=== PATIENT | female | born 1990 | race Caucasian/White ===

== ENCOUNTER → 2018-06-11 16:32 | Outpatient (CLI) | payer OTHER, SELFPAY ==
[2018-06-15 10:39] LABS: HPV Reflexed? NOT INDICATED
== END ==
LOC: LABSPEC 16:36
PROVIDERS: Visit Provider Family Medicine
DX: Z12.72 Encounter for screening for malignant neoplasm of vagina (principal)
CPT/HCPCS: 88175; G0145

== ENCOUNTER 2025-01-23 21:46 | Emergency (ER) | payer OTHER, MEDICAID, SELFPAY ==
[2025-01-23 21:47] VITALS: BP 148/104; PULSE 103; RESP 18; TEMP 36.4; O2SAT 100; BMI 31.6
--- OUTSIDE RECORDS SUMMARY | 2025-01-23 23:56 | XMS RPT_ITS | CCD ---
Author Organization [facility] [place] [facility] Care Team Providers Care 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 Name Role Phone Yoli Abreu Unavailable Unavailable Al Audi GARNETT, Amanda Iniguez Primary Care Provider FLORINA ONEAL Attending Unavailable AL SAIF, AMANDA INIGUEZ Referring Unavailable AL SAIF, AMANDA INIGUEZ Primary Care Unavailable AL SAIF, AMANDA INIGUEZ Attending Unavailable AL SAIF, ALEJANDRINAA Primary Care Unavailable AL SAIF, ALAA NELSONDI Referring Unavailable AL SAIF, ALAA Primary Care Unavailable AL SAWAYNE, AMANDA INIGUEZ Attending Unavailable AL SAIF, ALAAmina INIGUEZ Primary Care Unavailable AL SAIF, ALAA MAHDI Referring Unavailable AL SAIF, ALAA MAHDI Primary Care Unavailable Allergies Allergy Classification Reported Allergen(s) Allergy Type Date of Onset Reaction(s) Facility (11 sources) Penicillin V; Translations: [PENICILLIN V] Drug Allergy 10-15-2024 Unknown [facility] Medications Current Medications Medication Drug Class(es) Dates Sig (Normalized) Sig (Original) Ethinyl Estradiol / Norethindrone (10 sources) Estrogen Start: 12-03-2024 End: 11-04-2025 Norethindrone-Eth Estradiol (OVCON-35) 0.4-35 mg-mcg per tablet Take 1 tablet by mouth once daily. Take active pills only. Start a new pack every 3 weeks. 112 tablet 3 12/03/2024 11/04/2025 Active Start: 02-27-2023 End: 12-03-2024 take 1 tablet by mouth once daily Norethindrone-Eth Estradiol (OVCON-35) 0.4-35 mg-mcg per tablet Take 1 tablet by mouth once daily. 02/27/2023 12/03/2024 Discontinued Start: 02-27-2023 take 1 tablet by tanner th once daily Norethindrone-Eth Estradiol (OVCON-35) 0.4-35 mg-mcg per tablet Take 1 tablet by mouth once daily. 02/27/2023 Active fenofibrate 67 mg oral capsule (1 source) Peroxisome Proliferator Receptor alpha Agonist Start: 01-15-2025 End: 01-15-2026 take 1 capsule by mouth once daily at breakfast fenofibrate (LOFIBRA) 67 mg capsule Indications: Combined hyperlipidemia Take 1 capsule by mouth daily with breakfast. 90 capsule 3 01/15/2025 01/15/2026 Active Magnesium (8 sources) take 2 tablets by mouth once daily Magnesium 200 mg tab Take by mouth once daily. 400 mg Active methylsulfonylmethane (8 sources) methylsulfonylme derick (MSM ORAL) Take by mouth once daily. Active multivit,thx,calcium,ir on,mins (MULTIVITAMIN AND MINERAL ORAL) (8 sources) multivit,thx,orly cium,ir on,mins (MULTIVITAMIN AND MINERAL ORAL) Take by mouth once daily. Active nortriptyline 10 mg oral capsule (11 sources) Tricyclic Antidepressant Start: 10-15-2024 End: 12-03-2025 take 1 capsule by mouth once daily nortriptyline (PAMELOR) 10 mg capsule Indications: Migraine without aura and without status migrainosus, not intractable Take 1 capsule by mouth once daily. 90 capsule 3 12/03/2024 12/03/2025 Active ubrogepant 100 mg oral tablet (11 sources) Start: 02-27-2023 End: 12-04-2024 take 1 tablet by mouth once daily as needed ubrogepant (UBRELVY) 100 mg tablet Indications: Migraine without aura and without status migrainosus, not intractable Take 1 tablet by mouth once daily as needed. 30 tablet 12/04/2024 Active Problems Active Problems Problem Classification Problem Date Documented Date Episodic/Chronic Anxiety disorders (12 sources) Mixed anxiety and depressive disorder; Translations: [Other specified anxiety disorders] Onset: 10-15-2024 10-15-2024 Chronic Contraceptive and procreative management (2 sources) Oral contraception; Translations: [Encounter for surveillance of contraceptive pills] Onset: 12-03-2024 12-03-2024 Episodic Disorders of lipid metabolism (3 sources) Mixed hyperlipidemia; Translations: [Mixed hyperlipidemia] Onset: 01-15-2025 01-15-2025 Chronic Headache; including migraine (14 sources) Migraine without aura, not refractory ; Translations: [Migraine without aura, not intractable, without status migrainosus] Onset: 10-15-2024 10-15-2024 Chronic Nutritional deficiencies (2 sources) Vitamin D deficiency; Translations: [Vitamin D deficiency, unspecified] Onset: 10-15-2024 10-15-2024 Chronic Other nutritional; endocrine; and metabolic disorders (10 sources) Obese class I; Translations: [Obesity, Class I, BMI 30-34.9] Onset: 10-15-2024 10-15-2024 Chronic Unclassified (1 source) Cancer cervix screening status 10-15-2024 Unclassified (1 source) Obesity, Class I, BMI 30-34.9; Translations: [Obesity, Class I, BMI 30-34.9] Onset: 10-15-2024 Past or Other Problems Problem Classification Problem Date Documented Da te Episodic/Chronic Diabetes mellitus without complication (10 sources) Prediabetes; Translations: [Prediabetes] Onset: 10-15-2024 10-15-2024 Episodic Immunizations and screening for infectious disease (6 sources) Viral screening status; Translations: [Encounter for screening for other viral diseases] Onset: 10-15-2024 10-15-2024 Episodic Malaise and fatigue (2 sources) Fatigue; Translations: [Other fatigue] Onset: 10-15-2024 10-15-2024 Episodic Other screening for suspected conditions (not mental disorders or infectious disease) (8 sources) Patient encounter status; Translations: [Encounter for screening for lipoid disorders] Onset: 10-15-2024 10-15-2024 Episodic Screening and history of mental health and substance abuse codes (2 sources) Encounter for screening for depression; Translations: [Encounter for screening examination for other mental health and behavioral disorders] Onset: 10-15-2024 Episodic Results Test Name Value Interpretation Reference Range Facil ity CBC panel Auto (Bld)on 01-16 Erythrocyte distribution width (RBC) [Ratio] 13.9 % Normal 11.5-15.0 [facility] Comment on above: Order Comment: Speci men Type: BLOOD SPECIMENOrdering Facility: [facility] Address: [address] [place], [place] [address] Performed By: #### 5 9210-2 ####MCKINLEY ALFARON LABCLIA [id number] [place] [address] [facility] Hematocrit (Bld) [Volume fraction] 46.8 % High 36.0-46.0 [facility] Comment on above: Order Comment: Speci men Type: BLOOD SPECIMENOrdering Facility: [facility] Address: [address] [place] [address] Performed By: #### 5 8410-2 ####MCKINLEY ALFARON LABCLIA [id number] [place] [address] [facility] Hemoglobin (Bld) [Mass/Vol] 14.6 g/dL Normal 11.5-15.5 [facility] Comment on above: Order Comment: Speci men Type: BLOOD SPECIMENOrdering Facility: [facility] Address: [address] [place] [address] Performed By: #### 5 8410-2 ####MCKINLEY ALFARON LABCLIA [id number] [address] MCH (RBC) [Entitic mass] 27.9 pg Normal 26.0-34.0 [facility] Comment on above: Order Comment: Speci men Type: BLOOD SPECIMENOrdering Facility: [facility] Address: [address] [place] [address] Performed By: #### 5 8410-2 ####MCKINLEY ALFAROTiny LABCLIA [id number] [place] [address] [facility] MCHC (RBC) [Mass/Vol] 31.2 g/dL Normal 30.5-36.0 [facility] Comment on above: Order Comment: Speci men Type: BLOOD SPECIMENOrdering Facility: [facility] Address: [address] [place] [address] Performed By: #### 5 8410-2 ####MCKINLEY ALFARON LABCLIA [id number] [place] [address] [place] MCV (RBC) [Entitic vol] 89.3 fL Normal 80.0-100.0 [facility] Comment on above: Order Comment: Speci men Type: BLOOD SPECIMENOrdering Facility: [facility] Address: [address] [place] [address] Performed By: #### 5 8410-2 ####MCKINLEY ALFAROTiny LABCLIA [id number] [place] [address] [place] Platelet mean volume (Bld) [Entitic vol] 10.1 fL Normal 9.0-12.7 [facility] Comment on above: Order Comment: Speci men Type: BLOOD SPECIMENOrdering Facility: [facility] Address: [address] [place] [address] Performed By: #### 5 8410-2 ####BRIDoe BIJUCLIFTON LABIA [id number] [place] [address] [place] Platelets (Bld) [#/Vol] 285 10*3/uL Normal 150-400 [facility] Comment on above: Order Comment: Speci men Type: BLOOD SPECIMENOrdering Facility: [facility] Address: [address] [place] [address] Performed By: #### 5 8410-2 ####MCKINLEY ALFAROTiny LABCLIA [id number] [place] [address] [place] RBC (Bld) [#/Vol] 5.24 10*6/uL High 3.90-5.20 [facility] Comment on above: Order Comment: Speci men Type: BLOOD SPECIMENOrdering Facility: [facility] Address: [address] [place] [address] Performed By: #### 5 8410-2 ####MCKINLEY ALFAROTiny LABCLIA [id number] [place] [address] [place] WBC (Bld) [#/Vol] 8.73 10*3/uL Normal 3.70-11.00 [facility] Comment on above: Order Comment: Speci men Type: BLOOD SPECIMENOrdering Facility: [facility] Address: [address] [place] [address] Performed By: #### 5 8410-2 ####[facility] LABCLIA [id number] [address] Comprehensive metabolic 2000 panelon 01-16-2025 Albumin [Mass/Vol] 4.0 g/dL Normal 3.2-5.0 [facility] Comment on above: Order Comment: Speci men Type: BLOOD SPECIMENOrdering Facility: [facility] Address: [address] [place] [address] Performed By: #### 2 4323-8 ####[facility] LABORATORYCLIA [id number] [address]#### [address]-8 ####[facility] LABORATORYCLIA [id number] [address] LABCLIA [id number] [address] ALP [Catalytic activity/Vol] 74 U/L Normal 45-117 [facility] Comment on above: Order Comment: Speci men Type: BLOOD SPECIMENOrdering Facility: [facility] Address: [address] [place] [address] Performed By: #### 2 4323-8 ####[facility] LABORATORYCLIA [id number] [address]#### 28220-9 ####[facility] LABORATORYCLIA [id number] [address] [place] LABCLIA [id number] [address] ALT [Catalytic activity/Vol] 26 U/L Normal 13-61 [facility] Comment on above: Order Comment: Speci men Type: BLOOD SPECIMENOrdering Facility: [facility] Address: [address] [place] [address] Result Comment: Resu lts may be falsely depressed after the administration of Sulfasalazine and/or Sulfapyridine. Performed By: #### 2 4323-8 ####[facility] LABORATORYCLIA [id number] [address]#### 31163-2 ####[facility] LABORATORYCLIA [id number] [place] [address] [facility] [place] LABCLIA [id number] [place], [place] [address] [place] [address] [place] [facility] Anion gap [Moles/Vol] 7 mmol/L Normal 5-16 [facility] Comment on above: Order Comment: Speci men Type: BLOOD SPECIMENOrdering Facility: [facility] Address: [address] [place] [address] Performed By: #### 2 4323-8 ####[facility] LABORATORYCLIA [id number] [address]#### 06397-6 ####[facility] LABORATORYCLIA [id number] [address] [place] LABCLIA [id number] [address] AST [Catalytic activity/Vol] 21 U/L Normal 8-34 [facility] Comment on above: Order Comment: Speci men Type: BLOOD SPECIMENOrdering Facility: [facility] Address: [address] [place] [address] Result Comment: Resu lts may be falsely depressed after the administration of Sulfasalazine and/or Sulfapyridine. Performed By: #### 2 4323-8 ####[facility] LABORATORYCLIA [id number] [address] [place]#### [address]-5 ####[facility] LABORATORYCLIA [id number] [address] [place] LABCLIA [id number] [place] [id number] [place] Bilirubin [Mass/Vol] 0.3 mg/dL Normal 0.2-1.0 [facility] Comment on above: Order Comment: Speci men Type: BLOOD SPECIMENOrdering Facility: [facility] Address: [address] [address] Performed By: #### 2 4323-8 ####[facility] LABORATORYCLIA [id number] [place] [address] [place]#### 04440-9 ####[facility] LABORATORYCLIA [id number] [address] STATES OF [facility] [place] LABCLIA [id number] [place] [address] [place] Calcium [Mass/Vol] 9.3 mg/dL Normal 8.5-10.5 [facility] Comment on above: Order Comment: Speci men Type: BLOOD SPECIMENOrdering Facility: [facility] Address: [address] [place] [id number] Performed By: #### 2 4323-8 ####[facility] LABORATORYCLIA [id number] [place] [address] [place]#### 72682-4 ####[facility] LABORATORYCLIA [id number] [address] [place] LABCLIA [id number] [place] [address] [place] Chloride [Moles/Vol] 107 mmol/L Normal 98-107 [facility] Comment on above: Order Comment: Speci men Type: BLOOD SPECIMENOrdering Facility: [facility] Address: [address] [facility] [address] Performed By: #### 2 4323-8 ####[facility] LABORATORYCLIA [id number] [place] [address] [place]#### 22969-6 ####[facility] LABORATORYCLIA [id number] [address] [place] LABCLIA [id number] [address] [place] [facility] CO2 [Moles/Vol] 26 mmol/L Normal 21-32 [facility] Comment on above: Order Comment: Speci men Type: BLOOD SPECIMENOrdering Facility: [facility] Address: [address] [place] [address] Performed By: #### 2 4323-8 ####[facility] LABORATORYCLIA [id number] [address]#### 70344-2 ####[facility] LABORATORYCLIA [id number] [address] LABCLIA [id number] [address] STATES OF [facility] Creatinine [Mass/Vol] 0.53 mg/dL Normal 0.51-0.95 [facility] Comment on above: Order Comment: Speci men Type: BLOOD SPECIMENOrdering Facility: [facility] Address: [address] [place] [address] Result Comment: Faye ents receiving either N-Acetylcysteine (NAC) or Metamizole prior to venipuncture, may have falsely depressed results. Performed By: #### 2 4323-8 ####[facility] LABORATORYCLIA [id number] [address] [place]#### 89846-9 ####[facility] LABORATORYCLIA [id number] [address] LABCLIA [id number] [address] Creatinine and Glomerular filtration rate.predicted panel (S/P/Bld) 125 mL/min/1.73m??? Normal >=60 [facility] Comment on above: Order Comment: Speci men Type: BLOOD SPECIMENOrdering Facility: [facility] Address: [address] [place] [address] Result Comment: Della mated Glomerular Filtration Rate (eGFR) is calculated using the 2020 CKD-EPI creatinine equation. This equation utilizes serum creatinine, sex, and age as parameters. The creatinine assay has traceable calibration to isotope dilution-mass spectrometry. Refer to KDIGO guidelines for clinical interpretation. In patients with unstable renal function, e.g. those with acute kidney injury, the eGFR may not accurately reflect actual GFR. Performed By: #### 2 4323-8 ####[facility] LABORATORYCLIA [id number] [address]#### 07085-4 ####[facility] LABORATORYCLIA [id number] [address] LABCLIA [id number] [place] [address] [facility] Glucose [Mass/Vol] 93 mg/dL Normal 70-100 [facility] Comment on above: Order Comment: Speci men Type: BLOOD SPECIMENOrdering Facility: [facility] Address: [address] [place] [id number] Result Comment: The [place] Diabetes Association (ADA) provides guidance for cutoff values for fasting glucose and random glucose. The ADA defines fasting as no caloric intake for at least 8 hours. Fasting plasma glucose results between 100 to 125 mg/dL indicate increased risk for diabetes (prediabetes). Fasting plasma glucose results greater than or equal to 126 mg/dL meet the criteria for diagnosis of diabetes. In the absence of unequivocal hyperglycemia, results should be confirmed by repeat testing. In a patient with classic symptoms of hyperglycemia or hyperglycemic crisis, random plasma glucose results greater than or equal to 200 mg/dL meet the criteria for diagnosis of diabetes. Reference: Standards of Medical Care in Diabetes 2016, [place] Diabetes Association. Diabetes Care. 2016.39(Suppl 1). Results may be falsely elevated after the administration of Sulfapyridine. Results may be falsely depressed after the administration of Sulfasalazine. Performed By: #### 2 4323-8 ####[facility] LABORATORYCLIA [id number] [address]#### 51086-5 ####[facility] LABORATORYCLIA [id number] [place] [address] [facility] [place] LABCLIA [id number] [address] Potassium [Moles/Vol] 4.4 mmol/L Normal 3.5-5.1 [facility] Comment on above: Order Comment: Speci men Type: BLOOD SPECIMENOrdering Facility: [facility] Address: [address] [place] [address] Performed By: #### 2 4323-8 ####[facility] LABORATORYCLIA [id number] [address] [place]#### 06301-6 ####[facility] LABORATORYCLIA [id number] [address] [place] [facility] [place] LABCLIA [id number] [place] [address] [place] Protein [Mass/Vol] 7.8 g/dL Normal 6.0-8.5 [facility] Comment on above: Order Comment: Speci men Type: BLOOD SPECIMENOrdering Facility: [facility] Address: [address] [place] [address] Performed By: #### 2 4323-8 ####[facility] LABORATORYCLIA [id number] [address] [place]#### 52994-8 ####[facility] LABORATORYCLIA [id number] [address] [place] [facility] [place] LABCLIA [id number] [place] [address] [place] Sodium [Moles/Vol] 140 mmol/L Normal 136-145 [facility] Comment on above: Order Comment: Speci men Type: BLOOD SPECIMENOrdering Facility: [facility] Address: [address] [place] [address] Performed By: #### 2 4323-8 ####[facility] LABORATORYCLIA [id number] [place] [address] [place]#### 72159-3 ####[facility] LABORATORYCLIA [id number] [place] [address] [facility] [place] LABCLIA [id number] [place] [address] [place] Urea nitrogen [Mass/Vol] 8 mg/dL Normal 7-26 [facility] Comment on above: Order Comment: Speci men Type: BLOOD SPECIMENOrdering Facility: [facility] Address: [address] [place] [address] Performed By: #### 2 4323-8 ####[facility] LABORATORYCLIA [id number] [place] [address] [place]#### 28016-1 ####[facility] LABORATORYCLIA [id number] [place] [address] [facility] [place] LABCLIA [id number] [place], [place] [address] [place] [address] [place] Lipid 1996 panelon 5 Cholesterol [Mass/Vol] 197 mg/dL Normal 0-199 [facility] Comment on above: Order Comment: Speci men Type: BLOOD SPECIMENOrdering Facility: [facility] Address: [address] [place] [address] Result Comment: <200 mg/dL, Desirable 200-239 mg/dL, Borderline high >239 mg/dL, High Performed By: #### 2 4323-8 ####[facility] LABORATORYCLIA [id number] [place] [address] [place]#### 51983-3 ####[facility] LABORATORYCLIA [id number] [place] [address] [facility] [place] LABCLIA [id number] [place], [place] [address] [place] [address] [place] Cholesterol in HDL [Mass/Vol] 24 mg/dL Low >40 [facility] Comment on above: Order Comment: Shawn junior Type: BLOOD SPECIMENOrdering Facility: [facility] Address: [address] [place] [address] Result Comment: 40-5 9 mg/dL, Acceptable >59 mg/dL, High: Negative risk factor for coronary heart disease <40 mg/dL, Low: Positive risk factor for coronary heart disease Performed By: #### 2 4323-8 ####[facility] LABORATORYCLIA [id number] [address]#### 31556-1 ####[facility] LABORATORYCLIA [id number] [address] LABCLIA [id number] [address] Cholesterol in LDL [Mass/Vol] 117 mg/dL Normal 0-129 [facility] Comment on above: Order Comment: Shawn men Type: BLOOD SPECIMENOrdering Facility: [facility] Address: [address] [place] [address] Result Comment: <100 mg/dL, Optimal 100-129 mg/dL, Near optimal/above optimal 130-159 mg/dL, Borderline high 160-189 mg/dL, High >189 mg/dL, Very high Secondary prevention optimal LDL Cholesterol levels are recommended to be <70 mg/dL LDL cholesterol is calculated using the Landry-NIH equation. Performed By: #### 2 4323-8 ####[facility] LABORATORYCLIA [id number] [address]#### 15780-2 ####[facility] LABORATORYCLIA [id number] [address] [place] LABCLIA [id number] [address] Cholesterol in LDL/Cholesterol in HDL [Mass ratio] 4.88 {ratio} High <2.54 [facility] Comment on above: Order Comment: Brandii men Type: BLOOD SPECIMENOrdering Facility: [facility] Address: [address] [place] [address] Result Comment: Latasha forrester: 1. National Cholesterol Education Program ATP III Guideline At-A-Glance Quick Desk Reference: National Heart, Lung, and Blood [place]. National Institutes of Health. 2001: NIH Publication No. 01-3305. 2. An International Atherosclerosis Society position paper: global recommendations for the management of dyslipidemia: executive summary, Atherosclerosis. 2014: 232(2):410-413. Performed By: #### 2 4323-8 ####[facility] LABORATORYCLIA [id number] [address]#### 22753-2 ####[facility] LABORATORYCLIA [id number] [address] [place] LABCLIA [id number] [address] [place] Cholesterol in VLDL [Mass/Vol] 55 mg/dL High <30 [facility] Comment on above: Order Comment: Speci men Type: BLOOD SPECIMENOrdering Facility: [facility] Address: [address] [place] [address] Performed By: #### 2 4323-8 ####[facility] LABORATORYCLIA [id number] [address]#### 65070-6 ####[facility] LABORATORYCLIA [id number] [address] [place] LABCLIA [id number] [address] Cholesterol non HDL [Mass/Vol] 173 mg/dL High <130 [facility] Comment on above: Order Comment: Speci men Type: BLOOD SPECIMENOrdering Facility: [facility] Address: [address] [place] [id number] Result Comment: <130 mg/dL, Optimal 130-159 mg/dL, Near optimal/above optimal 160-189 mg/dL, Borderline high 190-219 mg/dL, High >219 mg/dL, Very high Secondary prevention optimal non HDL Cholesterol levels are recommended to be <100 mg/dL Performed By: #### 2 4323-8 ####[facility] LABORATORYCLIA [id number] [address] [place]#### [address]-8 ####[facility] LABORATORYCLIA [id number] [address] [place] LABCLIA [id number] [place], [place] [address] [place] [address] Cholesterol.total /Cholesterol in HDL [Mass ratio] 8.21 {ratio} High <5.10 [facility] Comment on above: Order Comment: Speci men Type: BLOOD SPECIMENOrdering Facility: [facility] [facility] Address: [address] [place] [address] Performed By: #### 2 4323-8 ####[facility] LABORATORYCLIA [id number] [address] OF [facility]#### 65819-5 ####[facility] LABORATORYCLIA [id number] [address]MERCY MASSI[facility] LABCLIA [id number] [address] FASTING TIME 10 hrs Normal [facility] Comment on above: Order Comment: Speci men Type: BLOOD SPECIMENOrdering Facility: [facility] Address: [address] [place] [address] Performed By: #### 2 4323-8 ####[facility] LABORATORYCLIA [id number] [address] OF [place]#### [address]264-4 ####[facility] LABORATORYCLIA [id number] [address] OF [facility] LABCLIA [id number] [place], [place] [id number] [place] [address] [place] Triglyceride [Mass/Vol] 318 mg/dL High 30-149 [facility] Comment on above: Order Comment: Speci men Type: BLOOD SPECIMENOrdering Facility: [facility] Address: [address], [place] [address] Result Comment: <150 mg/dL, Normal 150-199 mg/dL, Borderline high 200-499 mg/dL, High >499 mg/dL, Very high Patients receiving either N-Acetylcysteine (NAC) or Metamizole prior to venipuncture, may have falsely depressed results. Performed By: #### 2 4323-8 ####[facility] LABORATORYCLIA [id number] [place] [address] [facility]#### 94305-7 ####[facility] LABORATORYCLIA [id number] [place] [id number] [facility] LABCLIA [id number] [place] [address] [facility] CNOVon 01-15-2025 CNOV Office Visit (FAMAAR ) ----- TAYO VENEGAS Marli ([id number]) 1990 F Date Time Provider Department 01/15/25 9:15 AM AMANDA TABOR During your visit today, we recorded the following information about you: Pulse Blood pressure Weight Height 98/minute 118/82 84.4 kg 1.626 m Amanda Tabor MD 01/15/2025 9:27 AM Signed Tayo Marli Venegas is a 34-year-old female with a history of migraines, presenting for follow-up and evaluation of hyperlipidemia. Migraines: - Taking Ubrelvy PRN; Tayo has used it three times since last visit in October. - Daily medication, Pamelor, reportedly effective in reducing frequency. - Identified triggers include alcohol, artificial sugars, artificial dyes, and MSG. - Tayo avoids alcohol and foods high in artificial sugars, dyes, and MSG. Hyperlipidemia: - Recent labs show total cholesterol 303 mg/dL, triglycerides 351 mg/dL, LDL 109 mg/dL. - Family history of hyperlipidemia on paternal side. - Discussed dietary challenges in managing triglycerides, particularly avoiding sugar. - Tayo is open to medication management. 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 ALLERGIES Allergen Reactions Penicillin V Unknown Current Outpatient Medications Medication Sig ubrogepant (UBRELVY) 100 mg tablet Take 1 tablet by mouth once daily as needed. Magnesium 200 mg tab Take by mouth once daily. 400 mg multivit,thx,calcium,iron ,mins (MULTIVITAMIN AND MINERAL ORAL) Take by mouth once daily. methylsulfonylmethane (MSM ORAL) Take by mouth once daily. Norethindrone-Eth Estradiol (OVCON-35) 0.4-35 mg-mcg per tablet Take 1 tablet by mouth once daily. Take active pills only. Start a new pack every 3 weeks. nortriptyline (PAMELOR) 10 mg capsule Take 1 capsule by mouth once daily. fenofibrate (LOFIBRA) 67 mg capsule Take 1 capsule by mouth daily with breakfast. No current facility-administered medications for this visit. PAST MEDICAL HISTORY Diagnosis Date Anxiety state Depression Pt reported Migraines PAST SURGICAL HISTORY Procedure Laterality Date PT ED DENTAL HEALTH FAMILY HISTORY Problem Relation Age of Onset Stroke Mother passed 2019 Kidney Disease Mother Diabetes Mother Breast Cancer Mother late 40s/early 50s Arthritis Mother Hyperlipidemia Mother Stroke Father Cancer Father lung CA COPD Father Alcohol/Drug Father Hyperlipidemia Father Cancer Maternal Grandmother Arthritis Maternal Grandmother Diabetes Maternal Grandfather Arthritis Maternal Grandfather Diabetes Paternal Grandfather COPD Paternal Grandfather Cancer Paternal Grandfather lung and throat cancer Diabetes Other Arthritis Other Social History Tobacco Use Smoking status: Never Passive exposure: Never Smokeless tobacco: Never Vaping Use Vaping status: Never Used Substance Use Topics Alcohol use: Not Currently Drug use: Not Currently All medications have been reviewed and verified. Neurological: (+) migraine headaches VITALS: Blood pressure 118/82, pulse 98, height 162.6 cm (5' 4), weight 84.4 kg (186 lb), last menstrual period 04/07/2023, SpO2 99%., Body mass index is 31.93 kg/m?. GENERAL: NAD, alert and oriented SKIN: unremarkable, no rash or skin lesions. HEAD: normocephalic EYES: PERRLA, EOMI, conjunctiva clear EARS: external ears normal, canals clear, TM's normal. NOSE/SINUSES: Nares normal. Septum midline. OROPHARYNX: lips, mucosa, and tongue normal, good dentition. No oral lesions noted. NECK: Supple, no lymphadenopathy, normal thyroid, no carotid bruits. LUNGS: Clear to auscultation bilaterally, no wheezes/rhonchi/rales. HEART: Regular rate and rhythm, no murmurs. No ectopy. EXTREMITIES: Normal, No deformities, No skin discoloration, No edema. NEURO: Awake, alert and oriented x3, cranial nerves II-XII grossly intact, normal gait, no involuntary motions 1. Migraine without aura, not intractable, without status migrainosus (G43.009) - Migraines are well-controlled with current medication regimen; only required Ubrelvy three times since last visit. - Continue current preventive medication, Pamelor. - Continue to avoid known food and environmental triggers. 2. Anxiety with depression (F41.8) 3. 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 - Discussed family history of hyperlipidemia. - Initiated fenofibrate, medium dose, once daily. - Advised on the importance of diet and exercise. - Repeat lipid panel in 6 months to monitor response to treatment. 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 Patient/authorized containers sales representative agreed to proceed Bridgette Chavez (more content not included)... [facility] 01-01-2025 [facility] Telephone (FAMAAR) ----- TAYO VENEGAS ([id number]) 1990 F Date Time Provider Department 01/01/25 AMANDA TABOR During your visit today, we recorded the following information about you: Dev Mcgowan MA 01/01/2025 10:26 AM Signed Items addressed in this encounter: Prior Authorization Approved Ubrelvy Authorized through 12/08/2025 Able to close encounter. Dev Mcgowan MA January 01, 2025 10:18 AM 10:18 AM Allergies As of Date: 01/01/2025 Noted Allergy Reaction PENICILLIN V 10/15/2024 16 - Unknown Date Reviewed: 12/03/2024 Reviewed by: Florina Oneal APRN.FRUIT II FARMWORKER - Fully Assessed Reason for Visit: Approved Ubrelvy [Other] Prescriptions as of 01/01/2025 - ubrogepant (UBRELVY) 100 mg tablet Take 1 tablet by mouth once daily as needed. - Magnesium 200 mg tab Take by mouth once daily. 400 mg - multivit,thx,calcium,iron ,mins (MULTIVITAMIN AND MINERAL ORAL) Take by mouth once daily. - methylsulfonylmethane (MSM ORAL) Take by mouth once daily. - Norethindrone-Eth Estradiol (OVCON-35) 0.4-35 mg-mcg per tablet Take 1 tablet by mouth once daily. Take active pills only. Start a new pack every 3 weeks. - nortriptyline (PAMELOR) 10 mg capsule Take 1 capsule by mouth once daily. Problem List As Of Date 01/01/2025 Noted Resolved Obesity, Class I, BMI 30-34.9 [E66.811] 10/15/2024 Anxiety with depression [F41.8] 10/15/2024 Migraine without aura, not intractable, without*10/15/2024 Prediabetes [R73.03] 10/15/2024 Encounter Status:Closed by DEV MCGOWAN on 01/01/25 [facility] 12-26-2024 FAIZANN Telephone (FAMAAR) ----- TAYO VENEGAS ([id number]) 1990 F Date Time Provider Department 12/26/24 [facility] During your visit today, we recorded the following information about you: Dev Mcgowan MA 12/26/2024 9:05 AM Signed Items addressed in this encounter: Prior Authorization ERROR Able to close encounter. Dev Mcgowan MA December 26, 2024 9:00 AM 9:00 AM Allergies As of Date: 12/26/2024 Noted Allergy Reaction PENICILLIN V 10/15/2024 16 - Unknown Date Reviewed: 12/03/2024 Reviewed by: Florina Oneal APRN.FRUIT II FARMWORKER - Fully Assessed Reason for Visit: ERROR [Other] Prescriptions as of 12/26/2024 - ubrogepant (UBRELVY) 100 mg tablet Take 1 tablet by mouth once daily as needed. - Magnesium 200 mg tab Take by mouth once daily. 400 mg - multivit,thx,calcium,iron ,mins (MULTIVITAMIN AND MINERAL ORAL) Take by mouth once daily. - methylsulfonylmethane (MSM ORAL) Take by mouth once daily. - Norethindrone-Eth Estradiol (OVCON-35) 0.4-35 mg-mcg per tablet Take 1 tablet by mouth once daily. Take active pills only. Start a new pack every 3 weeks. - nortriptyline (PAMELOR) 10 mg capsule Take 1 capsule by mouth once daily. Problem List As Of Date 12/26/2024 Noted Resolved Obesity, Class I, BMI 30-34.9 [E66.811] 10/15/2024 Anxiety with depression [F41.8] 10/15/2024 Migraine without aura, not intractable, without*10/15/2024 Prediabetes [R73.03] 10/15/2024 Encounter Status:Closed by DEV MCGOWAN on 12/26/24 [facility] 12-19-2024 JULIETA Telephone (FAMAAR) ----- TAYO VENEGAS ([id number]) 1990 F Date Time Provider Department 12/19/24 AMANDA TABOR During your visit today, we recorded the following information about you: Dev Mcgowan MA 12/19/2024 9:52 AM Signed Items addressed in this encounter: Prior Authorization Ubrelvy is still under review Able to close encounter. Dev Mcgowan MA December 19, 2024 9:45 AM 9:45 AM Allergies As of Date: 12/19/2024 Noted Allergy Reaction PENICILLIN V 10/15/2024 16 - Unknown Date Reviewed: 12/03/2024 Reviewed by: Florina Oneal APRN.FRUIT II FARMWORKER - Fully Assessed Reason for Visit: Ubrelvy is still under review [Other] Prescriptions as of 12/19/2024 - ubrogepant (UBRELVY) 100 mg tablet Take 1 tablet by mouth once daily as needed. - Magnesium 200 mg tab Take by mouth once daily. 400 mg - multivit,thx,calcium,iron ,mins (MULTIVITAMIN AND MINERAL ORAL) Take by mouth once daily. - methylsulfonylmethane (MSM ORAL) Take by mouth once daily. - Norethindrone-Eth Estradiol (OVCON-35) 0.4-35 mg-mcg per tablet Take 1 tablet by mouth once daily. Take active pills only. Start a new pack every 3 weeks. - nortriptyline (PAMELOR) 10 mg capsule Take 1 capsule by mouth once daily. Problem List As Of Date 12/19/2024 Noted Resolved Obesity, Class I, BMI 30-34.9 [E66.811] 10/15/2024 Anxiety with depression [F41.8] 10/15/2024 Migraine without aura, not intractable, without*10/15/2024 Prediabetes [R73.03] 10/15/2024 Encounter Status:Closed by DEV MCGOWAN on 12/19/24 [facility] 12-11-2024 JULIETA Telephone (FAMAAR) ----- TAYO VENEGAS ([id number]) 1990 F Date Time Provider Department 12/11/24 AMANDA TABOR During your visit today, we recorded the following information about you: Dev Mcgowan MA 12/11/2024 9:48 AM Signed Items addressed in this encounter: Prior Authorization Pending Ubrelvy PA form faxed to [employer] [facility] dept Able to close encounter. Dev Mcgowan MA December 11, 2024 9:37 AM 9:37 AM Allergies As of Date: 12/11/2024 Noted Allergy Reaction PENICILLIN V 10/15/2024 16 - Unknown Date Reviewed: 12/03/2024 Reviewed by: Florina Oneal APRN.FRUIT II FARMWORKER - Fully Assessed Reason for Visit: Pending Ubrelvy [Other] Prescriptions as of 12/11/2024 - ubrogepant (UBRELVY) 100 mg tablet Take 1 tablet by mouth once daily as needed. - Magnesium 200 mg tab Take by mouth once daily. 400 mg - multivit,thx,calcium,iron ,mins (MULTIVITAMIN AND MINERAL ORAL) Take by mouth once daily. - methylsulfonylmethane (MSM ORAL) Take by mouth once daily. - Norethindrone-Eth Estradiol (OVCON-35) 0.4-35 mg-mcg per tablet Take 1 tablet by mouth once daily. Take active pills only. Start a new pack every 3 weeks. - nortriptyline (PAMELOR) 10 mg capsule Take 1 capsule by mouth once daily. Problem List As Of Date 12/11/2024 Noted Resolved Obesity, Class I, BMI 30-34.9 [E66.811] 10/15/2024 Anxiety with depression [F41.8] 10/15/2024 Migraine without aura, not intractable, without*10/15/2024 Prediabetes [R73.03] 10/15/2024 Encounter Status:Closed by DEV MCGOWAN on 12/11/24 [facility] 12-04-2024 [facility] Telephone (FAMAAR) ----- TAYO VENEGAS ([id number]) 1990 F Date Time Provider Department 12/04/24 [facility] During your visit today, we recorded the following information about you: Dev Mcgowan MA 12/04/2024 6:43 AM Signed Items addressed in this encounter: Prior Authorization Pending Ubrelvy 100MG tablets [place] [id number] Cover My Meds Able to close encounter. Dev Mcogwan MA December 04, 2024 6:24 AM 6:24 AM Dev Mcgowan MA 12/11/2024 9:49 AM Signed Items addressed in this encounter: Prior Authorization [employer] PA can not be submitted via cover my meds. Form faxed to plan on 12/11/2024 Able to close encounter. Dev Mcgowan MA December 11, 2024 9:49 AM 9:49 AM Allergies As of Date: 12/04/2024 Noted Allergy Reaction PENICILLIN V 10/15/2024 16 - Unknown Date Reviewed: 12/03/2024 Reviewed by: Florina Oneal APRN.FRUIT II FARMWORKER - Fully Assessed Reason for Visit: Yanely PA problem [Other] Prescriptions as of 12/11/2024 - ubrogepant (UBRELVY) 100 mg tablet Take 1 tablet by mouth once daily as needed. - Magnesium 200 mg tab Take by mouth once daily. 400 mg - multivit,thx,calcium,iron ,mins (MULTIVITAMIN AND MINERAL ORAL) Take by mouth once daily. - methylsulfonylmethane (MSM ORAL) Take by mouth once daily. - Norethindrone-Eth Estradiol (OVCON-35) 0.4-35 mg-mcg per tablet Take 1 tablet by mouth once daily. Take active pills only. Start a new pack every 3 weeks. - nortriptyline (PAMELOR) 10 mg capsule Take 1 capsule by mouth once daily. Problem List As Of Date 12/04/2024 Noted Resolved Obesity, Class I, BMI 30-34.9 [E66.811] 10/15/2024 Anxiety with depression [F41.8] 10/15/2024 Migraine without aura, not intractable, without*10/15/2024 Prediabetes [R73.03] 10/15/2024 Encounter Status:Closed by DEV MCGOWAN on 12/04/24 [facility] CNOVon 12-03-2024 CNOV Office Visit (OBGYWM ) ----- SANGEETATAYO MIJARES Marli ([id number]) 1990 F Date Time Provider Department 12/03/24 7:30 AM FLORINA ONEAL OBGYWM During your visit today, we recorded the following information about you: Blood pressure Weight Height Last Period 126/74 83.5 kg 1.638 m 04/07/23 Florina Oneal APRN.FRUIT II FARMWORKER 12/03/2024 8:17 AM Signed Patient declined day care home mother. Tayo is a 34 year old who presents for an annual gynecologic exam without complaints. 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 FAMILY HISTORY Problem Relation Age of Onset Stroke Mother Kidney Disease Mother Diabetes Mother Cancer Mother Arthritis Mother Hyperlipidemia Mother Stroke Father Cancer Father COPD Father Alcohol/Drug Father Hyperlipidemia Father Cancer Maternal Grandmother Arthritis Maternal Grandmother Diabetes Maternal Grandfather Arthritis Maternal Grandfather Diabetes Paternal Grandfather COPD Paternal Grandfather Cancer Paternal Grandfather Diabetes Other Arthritis Other SOCIAL HISTORY Social History Tobacco Use Smoking status: Never Passive exposure: Never Smokeless tobacco: Never Vaping Use Vaping status: Never Used Substance Use Topics Alcohol use: Not Currently Drug use: Not Currently REVIEW OF SYSTEMS Abdomen: No abdominal pain, nausea, vomiting, or constipation. Med related diarrhea. No bloating, early satiety, indigestion, or increased flatulence. Bladder: No dysuria, gross hematuria, urinary frequency, urinary urgency, or incontinence. Breast: No breast lumps, nipple d/c, overlying skin changes, redness or skin retraction. Allergies and current medication updated:Yes SENSITIVE EXAM: The sensitive examination was discussed with the Patient or Patient's Authorized Breast Trimmer. As applicable, any other physician, advance practice provider, medical student, or other health professional student that will be observing or involved in the sensitive examination for educational or training purposes was discussed with the Patient or Authorized Breast Trimmer. The Patient or Authorized Breast Trimmer has agreed to proceed with the sensitive examination. (Sensitive examination includes inspection and/or palpation of the breasts, pelvis, prostate and anorectal regions). EXAM: BP 126/74 Ht 5' 4.488 (1.64m) Wt 184 lb (83.5kg) LMP 04/07/2023 BMI 31.11 kg/(m2). GENERAL: pleasant, female in no apparent distress HEENT: Normocephalic, atraumatic, mucus membranes moist, and no lesions NECK: Supple, full range of motion, no adenopathy, and thyroid normal DERMATOLOGY: Normal, without lesions, non-icteric, and non-hirsute BREAST: soft, non-tender, symmetric, no dominant mass, normal nipple-areolar complex, no lymphadenopathy, and no nipple discharge CHEST: Normal inspiratory effort ABDOMEN: soft, non-tender, and no masses PELVIC: external genitalia normal, normal Bartholin's glands, urethra, Redcrest's glands, no vulvar lesions, no cervical lesions, good vaginal support, physiologic discharge present, normal appearing perineal body and perianal region BIMANUAL: uterus normal size, shape and consistency, no adnexal masses, and non-tender RECTOVAGINAL: deferred. NEURO: alert and oriented x3,exam grossly non-focal EXTREMITIES: normal ASSESSMENT/PLAN: 1) Health maintenance: Pap done with HPV. Mammogram starting age 40. Nutrition, exercise and routine health maintenance exams reviewed. Calcium/Vitamin D supplementation information provided. Colon cancer screening: start at age 45 2) Contraception: combined hormonal contraceptives. Contraceptive options reviewed and information provided. 3) STD screening: Declined STD check. 4) Follow up one year or sooner as needed Florina Oneal APRN.FAIZAN Referring Provider: AMANDA TABOR [[id number]] Allergies As of Date: 12/03/2024 Noted Allergy Reaction PENICILLIN V 10/15/2024 16 - Unknown Date Reviewed: 12/03/2024 Reviewed by: Florina Oneal APRN.FRUIT II FARMWORKER - Fully Assessed Reason for Visit: Well Woman [1463] Primary Visit Diagnosis:Encounter for gynecological examination (general) (routine) without abnormal findings [Z01.419] Other Visit Diagnoses:Screening for cervical cancer [Z12.4] Encounter for screening for human papillomavirus (HPV) [Z11.51] Encounter for surveillance of contraceptive pills [Z30.41] Order(s):CONSULT TO GYNECOLOGY [9013] Order #: [id number]: 1 PAP TEST [RSU0770] Order #: [id number]. #:[id number] Norethindrone-Eth Estradiol (OVCON-35) 0.4-35 mg-mcg per tabletTake 1 tablet by mouth once daily. Take active pills only. (more content not included)... Normal [facility] HIGH RISK HUMAN PAPILLOMA SHEYLA (HPV), PCR FOR DETECTION AND GENOTYPINGon 12-03-2024 HPV 16 Ag Ql (Unsp spec) Not detected Normal Not detected [facility] Comment on above: Order Comment: Speci men Type: FLUID SPECIMEN [facility] Address: [address] [place] [address] Performed By: #### H PVHRT #### [facility] CLIA [id number] [address] [place] [address] [place] HPV 18 Ag Ql (Unsp spec) Not detected Normal Not detected [facility] Comment on above: Order Comment: Speci men Type: FLUID SPECIMEN [facility]ing Facility: [facility] Address: [address] [place] [address] Performed By: #### H PVHRT #### [facility] CLIA [id number] [address] [place], [place] [address] [place] HPV 31+33+35+39+45+51 +52+56+58+59+66+6 8 DNA LUISA+probe Ql (Cvx) Not detected Normal Not detected [facility] Comment on above: Order Comment: Speci men Type: FLUID SPECIMEN [facility]: [facility] Address: [address] [place] [address] Result Comment: High Risk HPV Other Type includes HPV types 31, 33, 35, 39, 45, 51, 52, 56, 58, 59, 66 and 68. Performed By: #### H PVHRT #### [facility] CLIA [id number] [address] [place] [address] [place] PAP TESTon 12-03-2024 ADEQUACY Normal [facility] Comment on above: Order Comment: Speci men Type: FLUID SPECIMEN [facility]: [facility] Address: [address] [place] [address] Result Comment: Sati sfactory for interpretation. Transformation zone present Performed By: #### L [id number] #### [facility] CLIA [id number] [address] [place] [address] [place] CASE REPORT Normal [facility] Comment on above: Order Comment: Speci men Type: FLUID SPECIMEN [facility]ing Facility: [facility] Address: [address] [place] [address] Result Comment: Gyne cologic Cytology Report Case: [id number] Authorizing Provider: Florina Oneal APRN.FRUIT II FARMWORKER Collected: 12/03/2024 08:07 AM Ordering Location: OB/Gynecology Received: 12/03/2024 12:27 PM First Screen: Bev, Anita, CT, ASCP Specimen: Pap Test, ThinPrep, Cervix Performed By: #### L [id number] #### [facility] CLIA [id number] [address] [place] [address] [place] CLINICAL HISTORY, CYTOLOGY, REGULATORY INTERNSHIP Routine Exam Normal [facility] Comment on above: Order Comment: Speci men Type: FLUID SPECIMEN [facility]ing Facility: [facility] Address: [address] [place] [address] Performed By: #### L [id number] #### [facility] CLIA [id number] [address] [place], [place] [address] [place] FINAL PERFORMING LAB Normal [facility] Comment on above: Order Comment: Speci men Type: FLUID SPECIMEN Ordering Facility: [facility] Address: [address] [place] [address] Result Comment: Tech nical component, siderographer screening performed at: [facility], [address] [place] [address] [place] [address] CLIA: [id number] Diagnostic interpretation performed at: [facility], [address] [place] [address] [place] [address] CLIA# [id number] Process Pumper: Royer Velasquez MD Performed By: #### L [id number] #### [facility] CLIA [id number] [address] [place], [place] [address] [place] INTERPRETATION, CYTOLOGY, REGULATORY INTERNSHIP Normal [facility] Comment on above: Order Comment: Speci men Type: FLUID SPECIMEN Ordering Facility: [facility] Address: [address] [place] [address] Result Comment: Nega tive for intraepithelial lesion or malignancy. at 1139 EDT Performed By: #### L [id number] #### [facility] CLIA [id number] [address] [place], [place] [address] [place] LMP 04/07/2023 Normal [facility] Comment on above: Order Comment: Speci men Type: FLUID SPECIMEN Ordering Facility: [facility] Address: [address] [place] [address] Result Comment: Comm ent: cont OCPS Performed By: #### L [id number] #### [facility] CLIA [id number] [address] [place], [place] [id number] [place] PAP DISCLAIMER COMMENT The Pap Smear is a screening test for cervical cancer. False negative results occur with all screening tests, emphasizing the need for rescreening at recommended intervals, and clinical correlation. Normal [facility] Comment on above: Order Comment: Speci men Type: FLUID SPECIMEN Ordering Facility: [facility] Address: [address] [place] [address] Performed By: #### L [id number] #### [facility] CLIA [id number] [address] [place] [address] [place] PAP NOTE KEEPER COMMENT This specimen has been analyzed by the ThinPrep Imaging System, an automated imaging and review system, which assists the laboratory in evaluating cells on ThinPrep Pap tests. Following automated imaging, selected zambrano from every slide are reviewed by a siderographer. Normal [facility] Comment on above: Order Comment: Speci men Type: FLUID SPECIMEN Ordering Facility: [facility] Address: [address] [place] [address] Performed By: #### L [id number] #### [facility] CLIA [id number] [address] [place] [address] [place] 25(OH)D3 SerPl-ncon 2024 25-hydroxyvitamin D3 [Mass/Vol] 38.4 ng/mL Normal 30.0-100.0 [facility] Comment on above: Order Comment: Speci men Type: BLOOD SPECIMEN Ordering Facility: [facility] Address: [address] [place] [address] Result Comment: Defi ciency\X09\Less than 20 ng/mL Insufficiency\X09\20 - Less than 30 ng/mL Sufficiency\X09\30 - 100 ng/mL Performed By: #### 1 6128-1, 41986-5, 1988-10 #### [facility] CLIA [id number] [address] [place] [address] [place] CBC W Auto Differential pane l (Bld)on 10-16-2024 Basophils (Bld) [#/Vol] 0.05 10*3/uL Normal <0.11 [facility] Comment on above: Order Comment: Speci men Type: BLOOD SPECIMEN Ordering Facility: [facility] Address: [address] [place] [address] Performed By: #### 5 7021-8 #### [facility] [facility] CLIA [id number] [address] [place] [address] [place] Basophils/100 WBC (Bld) 0.5 % Normal [facility] Comment on above: Order Comment: Speci men Type: BLOOD SPECIMEN Ordering Facility: [facility] Address: [address] [place] [address] Performed By: #### 5 7021-8 #### [facility] CLIA [id number] [address] [place] [address] [place] Differential cell count method Nom (Bld) Auto Normal [facility] Comment on above: Order Comment: Speci men Type: BLOOD SPECIMEN Ordering Facility: [facility] Address: [address] [place] [address] Performed By: #### 5 7021-8 #### [facility] CLIA [id number] [address] [place], [place] [address] [place] Eosinophils (Bld) [#/Vol] 0.10 10*3/uL Normal <0.46 [facility] Comment on above: Order Comment: Speci men Type: BLOOD SPECIMEN Ordering Facility: [facility] Address: [address] [place] [address] Performed By: #### 5 7021-8 #### [facility] CLIA [id number] [address] [place], [place] [address] [place] Eosinophils/100 WBC (Bld) 1.0 % Normal [facility] Comment on above: Order Comment: Speci men Type: BLOOD SPECIMEN Ordering Facility: [facility] Address: [address] [place] [address] Performed By: #### 5 7021-8 #### [facility] CLIA [id number] [address] [place] [address] [place] Erythrocyte distribution width (RBC) [Ratio] 13.5 % Normal 11.5-15.0 [facility] Comment on above: Order Comment: Speci men Type: BLOOD SPECIMEN Ordering Facility: [facility] Address: [address] [place] [address] Performed By: #### 5 7021-8 #### [facility] [place] [facility] CLIA [id number] [address] [place], [place] [address] [place] Hematocrit (Bld) [Volume fraction] 45.1 % Normal 36.0-46.0 [facility] Comment on above: Order Comment: Speci men Type: BLOOD SPECIMEN Ordering Facility: [facility] Address: [address] [place] [address] Performed By: #### 5 7021-8 #### [facility] [place] [facility] CLIA [id number] [address] [place] [address] [place] Hemoglobin (Bld) [Mass/Vol] 15.0 g/dL Normal 11.5-15.5 [facility] Comment on above: Order Comment: Speci men Type: BLOOD SPECIMEN Ordering Facility: [facility] Address: [address] [place] [address] Performed By: #### 5 7021-8 #### [facility] [place] [facility] CLIA [id number] [address] [place], [place] [address] [place] Immature granulocytes (Bld) [#/Vol] 10*3/uL Normal <0.10 [facility] Comment on above: Order Comment: Speci men Type: BLOOD SPECIMEN Ordering Facility: [facility] Address: [address] [place] [address] Performed By: #### 5 7021-8 #### [facility] CLIA [id number] [address] [place], [place] [address] [facility] [place] Immature granulocytes/100 WBC (Bld) 0.1 % Normal [facility] Comment on above: Order Comment: Speci men Type: BLOOD SPECIMEN Ordering Facility: [facility] Address: [address] [place] [address] Performed By: #### 5 7021-8 #### [facility] CLIA [id number] [address] [place] [address] [place] Lymphocytes (Bld) [#/Vol] 3.72 10*3/uL Normal 1.00-4.00 [facility] Comment on above: Order Comment: Speci men Type: BLOOD SPECIMEN Ordering Facility: [facility] Address: [address] [place] [address] Performed By: #### 5 7021-8 #### [facility] [place] [facility] CLIA [id number] [address] [place] [address] Lymphocytes/100 WBC (Bld) 37.8 % Normal [facility] Comment on above: Order Comment: Speci men Type: BLOOD SPECIMEN Ordering Facility: [facility] Address: [address] [place] [address] Performed By: #### 5 7021-8 #### [facility] [place] [facility] CLIA [id number] [address] [place] [address] [place] MCH (RBC) [Entitic mass] 28.6 pg Normal 26.0-34.0 [facility] Comment on above: Order Comment: Speci men Type: BLOOD SPECIMEN Ordering Facility: [facility] Address: [address] [place] [address] Performed By: #### 5 7021-8 #### [facility] [place] [facility] CLIA [id number] [address] [place] [address] [place] MCHC (RBC) [Mass/Vol] 33.3 g/dL Normal 30.5-36.0 [facility] Comment on above: Order Comment: Speci men Type: BLOOD SPECIMEN Ordering Facility: [facility] Address: [address] [place] [address] Performed By: #### 5 7021-8 #### [facility] CLIA [id number] [address] [place] [address] [place] MCV (RBC) [Entitic vol] 85.9 fL Normal 80.0-100.0 [facility] Comment on above: Order Comment: Speci men Type: BLOOD SPECIMEN Ordering Facility: [facility] Address: [address] [place] [address] Performed By: #### 5 7021-8 #### [facility] CLIA [id number] [address] [place] [address] [place] Monocytes (Bld) [#/Vol] 0.52 10*3/uL Normal <0.87 [facility] Comment on above: Order Comment: Speci men Type: BLOOD SPECIMEN Ordering Facility: [facility] Address: [address] [place] [address] Performed By: #### 5 7021-8 #### [facility] CLIA [id number] [address] [place] [address] [place] Monocytes/100 WBC (Bld) 5.3 % Normal [facility] Comment on above: Order Comment: Speci men Type: BLOOD SPECIMEN Ordering Facility: [facility] Address: [address] [place] [address] Performed By: #### 5 7021-8 #### [facility] CLIA [id number] [address] [place], [place] [address] [place] Neutrophils (Bld) [#/Vol] 5.45 10*3/uL Normal 1.45-7.50 [facility] Comment on above: Order Comment: Speci men Type: BLOOD SPECIMEN Ordering Facility: [facility] Address: [address] [place] [address] Performed By: #### 5 7021-8 #### [facility] CLIA [id number] [address] [place], [place] [address] [place] Neutrophils/100 WBC (Bld) 55.3 % Normal [facility] Comment on above: Order Comment: Speci men Type: BLOOD SPECIMEN Ordering Facility: [facility] Address: [address] [place] [address] Performed By: #### 5 7021-8 #### [facility] CLIA [id number] [address] [place] [address] [place] Platelet mean volume (Bld) [Entitic vol] 9.7 fL Normal 9.0-12.7 [facility] Comment on above: Order Comment: Speci men Type: BLOOD SPECIMEN Ordering Facility: [facility] Address: [address] [place] [address] Performed By: #### 5 7021-8 #### [facility] CLIA [id number] [address] [place] [address] [place] Platelets (Bld) [#/Vol] 274 10*3/uL Normal 150-400 [facility] Comment on above: Order Comment: Speci men Type: BLOOD SPECIMEN Ordering Facility: [facility] Address: [address] [place] [address] Performed By: #### 5 7021-8 #### [facility] [place] [facility] CLIA [id number] [address] [place] [address] [place] RBC (Bld) [#/Vol] 5.25 10*6/uL High 3.90-5.20 [facility] Comment on above: Order Comment: Speci men Type: BLOOD SPECIMEN Ordering Facility: [facility] Address: [address] [place] [address] Performed By: #### 5 7021-8 #### [facility] CLIA [id number] [facility] [place] [address] [place] WBC (Bld) [#/Vol] 9.85 10*3/uL Normal 3.70-11.00 [facility] Comment on above: Order Comment: Speci men Type: BLOOD SPECIMEN Ordering Facility: [facility] Address: [address] [place] [address] Performed By: #### 5 7021-8 #### [facility] [place] [facility] CLIA [id number] [address] [place] [address] [facility] [place] Comprehensive metabolic 2000 panelon 10-16-2024 Albumin [Mass/Vol] 3.9 g/dL Normal 3.2-5.0 [facility] Comment on above: Order Comment: Speci men Type: BLOOD SPECIMEN Ordering Facility: [facility] Address: [facility] [place] [address] Performed By: #### 2 4323-8, 3016-3 #### [facility] CLIA [id number] [address] [place] [address] [place] #### 33822-3 #### [facility] CLIA [id number] [address] [place], [place] [address] [facility] CLIA [id number] [address] [place], [place] [address] [place] [address] [place] ALP [Catalytic activity/Vol] 76 U/L Normal 45-117 [facility] Comment on above: Order Comment: Speci men Type: BLOOD SPECIMEN Ordering Facility: [facility] Address: [address] [place] [address] Performed By: #### 2 4323-8, 6-3 #### [facility] CLIA [id number] [address] [place] [address] [place] #### 03304-3 #### [facility] CLIA [id number] [address] [place], [place] [address] [place] OF [facility] CLIA [id number] [address] [place], [place] [address] [place] [address] [place] ALT [Catalytic activity/Vol] 24 U/L Normal 13-61 [facility] Comment on above: Order Comment: Speci men Type: BLOOD SPECIMEN Ordering Facility: [facility] Address: [address] [place] [address] Result Comment: Resu lts may be falsely depressed after the administration of Sulfasalazine and/or Sulfapyridine. Performed By: #### 2 4323-8, 3016-3 #### [facility] CLIA [id number] [address] [place] [address] [place] #### 42930-6 #### [facility] CLIA [id number] [address] [place], [place] [address] [facility] CLIA [id number] [address] [place] [id number] [place] [address] [place] [facility] Anion gap [Moles/Vol] 6 mmol/L Normal 5-16 [facility] Comment on above: Order Comment: Speci men Type: BLOOD SPECIMEN Ordering Facility: [facility] Address: [address] [place] [address] Performed By: #### 2 4323-8, 3016-3 #### [facility] CLIA [id number] [address] [place] [address] OF [facility] #### 14255-8 #### [facility] CLIA [id number] [address] [place], [place] [address] [facility] CLIA [id number] [address] [place] [address] [place] [facility] AST [Catalytic activity/Vol] 21 U/L Normal 8-34 [facility] Comment on above: Order Comment: Speci men Type: BLOOD SPECIMEN Ordering Facility: [facility] Address: [address] [place] [address] Result Comment: Resu lts may be falsely depressed after the administration of Sulfasalazine and/or Sulfapyridine. Performed By: #### 2 4323-8, 6-3 #### [facility] CLIA [id number] [address] [place] [address] [place] #### 10735-4 #### [facility] CLIA [id number] [address] [place], [place] [address] [facility] CLIA [id number] [address] [place] [address] [place] Bilirubin [Mass/Vol] 0.5 mg/dL Normal 0.2-1.0 [facility] Comment on above: Order Comment: Speci men Type: BLOOD SPECIMEN Ordering Facility: [facility] Address: [address] [place], [place] [address] Performed By: #### 2 4323-8, 3015-3 #### [facility] CLIA [id number] [address] [place], [place] [address] [place] #### 09215-1 #### [facility] CLIA [id number] [address] [place], [place] [address] [place] [facility] [place] [facility] CLIA [id number] [facility] [place] [address] [place] Calcium [Mass/Vol] 9.8 mg/dL Normal 8.5-10.5 [facility] Comment on above: Order Comment: Speci men Type: BLOOD SPECIMEN Ordering Facility: [facility] Address: [address] [place], [place] [address] Performed By: #### 2 4323-8, 3015-3 #### [facility] CLIA [id number] [address] [place] [address] [place] #### 40380-4 #### [facility] CLIA [id number] [address] [place], [place] [address] [place] [facility] [place] [facility] CLIA [id number] [address] [place] [address] [place] [facility] Chloride [Moles/Vol] 106 mmol/L Normal 98-107 [facility] Comment on above: Order Comment: Speci men Type: BLOOD SPECIMEN Ordering Facility: [facility] Address: [address] [place], [place] [address] Performed By: #### 2 4323-8, 3015-3 #### [facility] CLIA [id number] [address] [place], [place] [address] [place] #### 39493-8 #### [facility] CLIA [id number] [address] [place] [address] [place] [facility] [place] [facility] CLIA [id number] [address] [place] [address] [place] CO2 [Moles/Vol] 26 mmol/L Normal 21-32 [facility] Comment on above: Order Comment: Speci men Type: BLOOD SPECIMEN Ordering [facility]: [facility] Address: [address] [place] [address] Performed By: #### 2 4323-8, 3016-3 #### [facility] CLIA [id number] [address] [place] [address] #### 72975-9 #### [facility] CLIA [id number] [address] [place], [place] [address] [facility] CLIA [id number] [address] [place] [address] Creatinine [Mass/Vol] 0.61 mg/dL Normal 0.51-0.95 [facility] Comment on above: Order Comment: Speci [facility] Type: BLOOD SPECIMEN Ordering Facility: [facility] Address: [address] [place] [address] Result Comment: Faye ents receiving either N-Acetylcysteine (NAC) or Metamizole prior to venipuncture, may have falsely depressed results. Performed By: #### 2 4323-8, 6-3 #### [facility] CLIA [id number] [address] [place] [address] OF [facility] #### 72428-3 #### [facility] CLIA [id number] [address] [place], [place] [address]N LAB CLIA [id number] [address] Creatinine and Glomerular filtration rate.predicted panel (S/P/Bld) 121 mL/min/1.73m??? Normal >=60 [facility] Comment on above: Order Comment: Speci men Type: BLOOD SPECIMEN Ordering Facility: [facility] Address: [address] [place] [address] Result Comment: Della mated Glomerular Filtration Rate (eGFR) is calculated using the 2021 CKD-EPI creatinine equation. This equation utilizes serum creatinine, sex, and age as parameters. The creatinine assay has traceable calibration to isotope dilution-mass spectrometry. Refer to KDIGO guidelines for clinical interpretation. In patients with unstable renal function, e.g. those with acute kidney injury, the eGFR may not accurately reflect actual GFR. Performed By: #### 2 4323-8, 3015-3 #### [facility] CLIA [id number] [address] [place], [place] [address] [place] #### 06738-3 #### [facility] CLIA [id number] [address] [place] [address] [facility] CLIA [id number] [address] [place] [address] [place] [facility] Glucose [Mass/Vol] 83 mg/dL Normal 70-100 [facility] Comment on above: Order Comment: Speci men Type: BLOOD SPECIMEN Ordering Facility: [facility] Address: [address] [place] [address] Result Comment: The [place] Diabetes Association (ADA) provides guidance for cutoff values for fasting glucose and random glucose. The ADA defines fasting as no caloric intake for at least 8 hours. Fasting plasma glucose results between 100 to 125 mg/dL indicate increased risk for diabetes (prediabetes). Fasting plasma glucose results greater than or equal to 126 mg/dL meet the criteria for diagnosis of diabetes. In the absence of unequivocal hyperglycemia, results should be confirmed by repeat testing. In a patient with classic symptoms of hyperglycemia or hyperglycemic crisis, random plasma glucose results greater than or equal to 200 mg/dL meet the criteria for diagnosis of diabetes. Reference: Standards of Medical Care in Diabetes 2016, [place] [employer] Association. Diabetes Care. 2016.39(Suppl 1). Results may be falsely elevated after the administration of Sulfapyridine. Results may be falsely depressed after the administration of Sulfasalazine. Performed By: #### 2 4323-8, 3015-3 #### [facility] CLIA [id number] [address] [place], [place] [address] [place] #### 41577-6 #### [facility] CLIA [id number] [address] [place] [address] [place] [facility] CLIA [id number] [address] [place] [address] [place] Potassium [Moles/Vol] 3.7 mmol/L Normal 3.5-5.1 [facility] Comment on above: Order Comment: Speci men Type: BLOOD SPECIMEN Ordering Facility: [facility] Address: [address] [place] [address] Performed By: #### 2 4323-8, 6-3 #### [facility] CLIA [id number] [address] [place] [address] [place] #### 78482-9 #### [facility] CLIA [id number] [address] [place] [address] [place] [facility] CLIA [id number] [address] [place] [address] [place] Protein [Mass/Vol] 7.4 g/dL Normal 6.0-8.5 [facility] Comment on above: Order Comment: Speci men Type: BLOOD SPECIMEN Ordering Facility: [facility] Address: [address] [place] [address] Performed By: #### 2 4323-8, 6-3 #### [facility] CLIA [id number] [address] [place] [address] [place] #### 90372-1 #### [facility] CLIA [id number] [address] [place] [address] [place] [facility] CLIA [id number] [address] [place] [address] [place] Sodium [Moles/Vol] 138 mmol/L Normal 136-145 [facility] Comment on above: Order Comment: Speci men Type: BLOOD SPECIMEN Ordering Facility: [facility] Address: [address] [place] [address] Performed By: #### 2 4323-8, 6-3 #### [facility] CLIA [id number] [address] [place] [address] [place] #### 27813-9 #### [facility] CLIA [id number] [address] [place], [place] [address]N LAB CLIA [id number] [address] [place], [place] [address] [place] [address] STATES [facility] Urea nitrogen [Mass/Vol] 9 mg/dL Normal - [facility] Comment on above: Order Comment: Speci men Type: BLOOD SPECIMEN Ordering Facility: [facility] Address: [address] [place] [address] Performed By: #### 2 4323-8, 3016-3 #### [facility] CLIA [id number] [address] [place] [address] [place] #### 62187-8 #### [facility] CLIA [id number] [address] [place] [address] [place] [facility] CLIA [id number] [address] OF [place] HCV Ab Ser Qlon 10-16-2024 HCV Ab Ql (S) Non-Reactive Normal Nonreactive [facility] Comment on above: Order Comment: Speci men Type: BLOOD SPECIMEN Ordering Facility: [facility] Address: [address] [place] [address] Result Comment: Scre ening test negative Nonreactive HCV Antibody Screen is consistent with no HCV infection, unless recent infection is suspected or other evidence exists to indicate HCV infection. Results were obtained with the [employer] IM IgG assay. Values obtained with different manufactures' assay methods may not be used interchangeably. Performed By: #### 1 6128-1, 58315-2, 1988- #### [facility] CLIA [id number] [address] [place] [address] [place] HIV 1+2 Ab IA Qlon HIV 1+2 Ab+HIV1 p24 Ag IA Ql Non-Reactive Normal Nonreactive [facility] Comment on above: Order Comment: Speci men Type: BLOOD SPECIMEN Ordering Facility: [facility] Address: [address] [place] [address] Result Comment: Nonr eactive: Less than 1.0 index value Specimens with an index value <1.0 are considered nonreactive for antibodies to HIV-1, HIV-2, and p24 antigen by the [employer] IM CHIV assay. Performed By: #### 1 6128-1, 90196-3, 1988- #### [facility] CLIA [id number] [address] [place] [address] [place] HbA1c (Bld)on 10-16-2024 Average glucose Estimated from glycated hemoglobin (Bld) [Mass/Vol] 88 mg/dL Normal [facility] Comment on above: Order Comment: Speci men Type: BLOOD SPECIMEN [facility] [facility] Address: [address] [place] [address] Result Comment: eAG: (Estimated average glucose) is a calculated value from HgbA1c and is containers sales representative of the average blood glucose level in the last 2-3 month period. Performed By: #### 5 5454-3 #### [facility] CLIA [id number] [address] [place] [address] [place] HbA1c (Bld) [Mass fraction] 4.7 % Normal 4.3-5.6 [facility] Comment on above: Order Comment: Shawn junior Type: BLOOD SPECIMEN Ordering Facility: [facility] Address: [address] [place] [address] Result Comment: Amer ican Diabetes Association guidelines indicate that patients with HgbA1c in the range 5.7-6.4% are at increased risk for development of diabetes, and intervention by lifestyle modification may be beneficial. HgbA1c greater or equal to 6.5% is considered diagnostic of diabetes. Performed By: #### 5 5454-3 #### [facility] CLIA [id number] [address] [place] [address] [place] Lipid 1996 panelon Cholesterol [Mass/Vol] 203 mg/dL High 0-199 [facility] Comment on above: Order Comment: Speci men Type: BLOOD SPECIMEN Ordering Facility: [facility] Address: [address] [place] [address] Result Comment: <200 mg/dL, Desirable 200-239 mg/dL, Borderline high >239 mg/dL, High Performed By: #### 2 4323-8, 3016-3 #### [facility] CLIA [id number] [address] [place] [address] [place] #### 35208-1 #### [facility] CLIA [id number] [address] [place] [address] [facility] CLIA [id number] [address] Cholesterol in HDL [Mass/Vol] 24 mg/dL Low >40 [facility] Comment on above: Order Comment: Speci men Type: BLOOD SPECIMEN Ordering Facility: [facility] Address: [address] [place] [address] Result Comment: 40-5 9 mg/dL, Acceptable >59 mg/dL, High: Negative risk factor for coronary heart disease <40 mg/dL, Low: Positive risk factor for coronary heart disease Performed By: #### 2 4323-8, 3016-3 #### [facility] CLIA [id number] [address] [place] [address] OF [facility] #### 89072-2 #### [facility] CLIA [id number] [address] [place] [address] [facility] CLIA [id number] [address] [place], [place] [address] [place] [address] Cholesterol in LDL [Mass/Vol] 109 mg/dL Normal 0-129 [facility] Comment on above: Order Comment: Speci men Type: BLOOD SPECIMEN Ordering Facility: [facility] Address: [address] [id number] Result Comment: <100 mg/dL, Optimal 100-129 mg/dL, Near optimal/above optimal 130-159 mg/dL, Borderline high 160-189 mg/dL, High >189 mg/dL, Very high Secondary prevention optimal LDL Cholesterol levels are recommended to be < 70 mg/dL Performed By: #### 2 4323-8, 3015-3 #### [facility] CLIA [id number] [address] [place], [place] [address] [place] #### 20909-6 #### [facility] CLIA [id number] [address] [place], [place] [address] [facility] CLIA [id number] [address] [place] [address] [facility] Cholesterol in LDL/Cholesterol in HDL [Mass ratio] 4.54 {ratio} High <2.54 [facility] Comment on above: Order Comment: Speci men Type: BLOOD SPECIMEN Ordering Facility: [facility] Address: [address] [place] [address] Result Comment: Refe rence: 1. National Cholesterol Education Program ATP III Guideline At-A-Glance Quick Desk Reference: National Heart, Lung, and Blood [place]. National Institutes of Health. 2001: NIH Publication No. 01-3305. 2. An International Atherosclerosis Society position paper: global recommendations for the management of dyslipidemia: executive summary, Atherosclerosis. 2014: 232(2):410-413. Performed By: #### 2 4323-8, 3015-3 #### [facility] CLIA [id number] [address] [place] [address] [place] #### 63890-1 #### [facility] CLIA [id number] [address] [place], [place] [address] [facility] CLIA [id number] [address] [place] [address] [facility] Cholesterol in VLDL [Mass/Vol] 70 mg/dL High <30 [facility] Comment on above: Order Comment: Speci men Type: BLOOD SPECIMEN Ordering Facility: [facility] Address: [address] [place] [address] Performed By: #### 2 4323-8, 3015-3 #### [facility] CLIA [id number] [address] [place], [place] [address] [place] #### 33510-6 #### [facility] CLIA [id number] [address] [place], [place] [address] [facility] CLIA [id number] [address] [place] [address] [place] Cholesterol non HDL [Mass/Vol] 179 mg/dL High <130 [facility] Comment on above: Order Comment: Speci men Type: BLOOD SPECIMEN Ordering Facility: [facility] Address: [address] [place] [address] Result Comment: <130 mg/dL, Optimal 130-159 mg/dL, Near optimal/above optimal 160-189 mg/dL, Borderline high 190-219 mg/dL, High >219 mg/dL, Very high Secondary prevention optimal non HDL Cholesterol levels are recommended to be <100 mg/dL Performed By: #### 2 4323-8, 3015-3 #### [facility] CLIA [id number] [address] [place] [address] [place] #### 28042-9 #### [facility] CLIA [id number] [address] [place], [place] [address] [facility] CLIA [id number] [address] [place] [address] [place] Cholesterol.total /Cholesterol in HDL [Mass ratio] 8.46 {ratio} High <5.10 [facility] Comment on above: Order Comment: Speci men Type: BLOOD SPECIMEN Ordering Facility: [facility] Address: [address] [place] [address] Performed By: #### 2 4323-8, 3016-3 #### [facility] CLIA [id number] [address] [place] [address] [place] #### 80533-2 #### [facility] CLIA [id number] [address] [place], [place] [address] [facility] CLIA [id number] [address] FASTING TIME 12 hrs Normal [facility] Comment on above: Order Comment: Speci men Type: BLOOD SPECIMEN Ordering Facility: [facility] Address: [address] [place] [address] Performed By: #### 2 4323-8, 3016-3 #### [facility] CLIA [id number] [address] [place] [address] #### 40018-8 #### [facility] CLIA [id number] [address] [place], [place] [address] [facility] CLIA [id number] [address] [place] [address] Triglyceride [Mass/Vol] 351 mg/dL High 30-149 [facility] Comment on above: Order Comment: Speci men Type: BLOOD SPECIMEN Ordering Facility: [facility] Address: [address] [place] [address] Result Comment: <150 mg/dL, Normal 150-199 mg/dL, Borderline high 200-499 mg/dL, High >499 mg/dL, Very high Patients receiving either N-Acetylcysteine (NAC) or Metamizole prior to venipuncture, may have falsely depressed results. Performed By: #### 2 4323-8, 3016-3 #### [facility] CLIA [id number] [address] [place] [address] OF [facility] #### 52001-9 #### [facility] CLIA [id number] [address] [place], [place] [address]N LAB CLIA [id number] [address] [place] [address] [place] TSH SerPl-aCncon 10-16-2024 TSH Qn 1.867 m[IU]/L Normal 0.358-3.740 [facility] Comment on above: Order Comment: Speci men Type: BLOOD SPECIMEN Ordering Facility: [facility] Address: [address] [place], [place] [address] [address] Result Comment: 3rd generation ultra sensitive TSH. Performed By: #### 2 4323-8, 3016-3 #### [facility] CLIA [id number] [address] [place] [address] [place] #### 81517-6 #### [facility] CLIA [id number] [address] [place], [place] [address] [facility] CLIA [id number] [address] [place], [place] [address] [place] [address] CNOVon 10-15-2024 CNOV Office Visit (FAMAAR ) ----- SANGEETATAYO MIJARES ([id number]) 1990 F Date Time Provider Department 10/15/24 3:40 PM [facility] During your visit today, we recorded the following information about you: Pulse Blood pressure Weight Height 92/minute 118/68 82.9 kg 1.651 m Amanda Tabor MD 10/15/2024 4:04 PM Signed This note was created using Biotectixriter. Subjective Clarity Theo is a 34 year old female. HPI New patient to establish care Migraines seeing neurology on nortriptyline daily helps. Takes ubrelvy as needed. Family hx of DM , Hypothyroidism. Mother at age of 56 y.o from renal failure complication . PAST MEDICAL HISTORY Diagnosis Date Migraines PAST SURGICAL HISTORY Procedure Laterality Date PT ED DENTAL HEALTH Social History Tobacco Use Smoking status: Never Passive exposure: Never Smokeless tobacco: Never Vaping Use Vaping status: Never Used Substance Use Topics Alcohol use: Not Currently Drug use: Not Currently All medications have been reviewed and verified. Review of Systems Constitutional: Positive for fatigue. Negative for fever. HENT: Negative for congestion, dental problem, drooling and ear discharge. Eyes: Negative for pain, discharge and itching. Respiratory: Negative for cough, chest tightness, shortness of breath and wheezing. Cardiovascular: Negative for chest pain, palpitations and leg swelling. Gastrointestinal: Negative for abdominal pain, blood in stool and constipation. Endocrine: Negative for cold intolerance, heat intolerance, polydipsia, polyphagia and polyuria. Genitourinary: Negative for difficulty urinating, dysuria, enuresis and flank pain. Skin: Negative for color change and pallor. Allergic/Immunologic: Negative for environmental allergies, food allergies and immunocompromised state. Neurological: Negative for dizziness, facial asymmetry, light-headedness and headaches. Hematological: Negative for adenopathy. Does not bruise/bleed easily. Objective BP 118/68 Pulse 92 Ht 165.1 cm (5' 5) Wt 82.9 kg (182 lb 12.8 oz) SpO2 98% BMI 30.42 kg/m? Physical Exam Vitals and nursing note reviewed. Constitutional: General: She is not in acute distress. Appearance: Normal appearance. She is obese. She is not ill-appearing. HENT: Head: Normocephalic and atraumatic. Nose: Nose normal. No congestion or rhinorrhea. Eyes: Pupils: Pupils are equal, round, and reactive to light. Cardiovascular: Rate and Rhythm: Normal rate and regular rhythm. Pulses: Normal pulses. Heart sounds: Normal heart sounds. No murmur heard. Pulmonary: Effort: Pulmonary effort is normal. No respiratory distress. Breath sounds: Normal breath sounds. No wheezing, rhonchi or rales. Abdominal: General: Bowel sounds are normal. Palpations: Abdomen is soft. There is no mass. Tenderness: There is no abdominal tenderness. Hernia: No hernia is present. Musculoskeletal: General: Normal range of motion. Cervical back: Normal range of motion and neck supple. Lymphadenopathy: Cervical: No cervical adenopathy. Skin: Findings: No bruising, lesion or rash. Neurological: General: No focal deficit present. Mental Status: She is alert and oriented to person, place, and time. Mental status is at baseline. Cranial Nerves: No cranial nerve deficit. Motor: No weakness. Gait: Gait normal. Psychiatric: Mood and Affect: Mood normal. Behavior: Behavior normal. Assessment and Plan ASSESSMENT/PLAN: 1. Migraine without aura and without status migrainosus, not intractable - ICD9: 346.10, ICD10: G43.009 (primary diagnosis) - NORTRIPTYLINE 10 MG CAPSULE - NORTRIPTYLINE 10 MG CAPSULE - COMPLETE BLOOD COUNT AND DIFFERENTIAL - COMPREHENSIVE METABOLIC PANEL 2. Obesity, Class I, BMI 30-34.9 - ICD9: 278.00, ICD10: E66.811 Obesity Body mass index is 30.42 kg/m?. Last Wt 10/15/24 : 82.9 kg (182 lb 12.8 oz) 5% weight loss = 174 lbs, 10% weight loss = 165 lbs The patient is asked to make an attempt to improve diet and exercise patterns to aid in medical management of this problem. Counseling 15 min . 3. Fatigue, unspecified type - ICD9: 780.79, ICD10: R53.83 - THYROID STIMULATING HORMONE 4. Prediabetes - ICD9: 790.29, ICD10: R73.03 - HEMOGLOBIN A1C 5. Vitamin D deficiency - ICD9: 268.9, ICD10: E55.9 - VITAMIN D 25 HYDROXY 6. Screening for lipid disorders - ICD9: V77.91, ICD10: Z13.220 - LIPID PANEL BASIC 7. Screening for cervical cancer - ICD9: V76.2, ICD10: Z12.4 - CONSULT TO GYNECOLOGY 8. Screening for depression - ICD9: V79.0, ICD10: Z13.31 - DEPRESSION SCREENING 9. Encounter for screening examination for other mental health and behavioral disorders - ICD9: V79.8, ICD10: Z13.39 - ANXIETY SCREENING 10. Anxiety with depression - ICD9: 300.4, ICD10: F41.8 11. Special screening examination for viral (more content not included)... Normal [facility] PAP I-G w/rfx hrHPVon 2017 ADEQ Comment Normal . [facility] Comment on above: Order Comment: CYTOL OGY INFORMATION:- CLINICAL INFORMATION:- DATE LMP/MENOPAUSE: 06/07/18 LMP- COLLECTION VIAL: Thin Prep Vial- REGULATORY INTERNSHIP SOURCE: CERVICAL AND ENDOMETRIUM- COLLECTION TECHNIQUE: BRUSH/SPATULASpecimen Comment: [id number] Comment: Source.............Cervix;EndocervixSpecimen Comment: LMP / Prev Treat...[id number] Comment: No. of containers..01 ThinPrep Vial Result Comment: Sati sfactory for evaluation. No endocervical component is identified. Performed By: #### L 7400.0350 ####[facility] (refer to report for specific site)refer to report for address and phone number COMM . Normal . [facility] Comment on above: Order Comment: CYTOL OGY INFORMATION:- CLINICAL INFORMATION:- DATE LMP/MENOPAUSE: 06/07/18 LMP- COLLECTION VIAL: Thin Prep Vial- REGULATORY INTERNSHIP SOURCE: CERVICAL AND ENDOMETRIUM- COLLECTION TECHNIQUE: BRUSH/SPATULASpecimen Comment: [id number] Comment: Source.............Cervix;EndocervixSpecimen Comment: LMP / Prev Treat...[id number] Comment: No. of containers..01 ThinPrep Vial Performed By: #### L 7400.0350 ####[facility] (refer to report for specific site)refer to report for address and phone number DIAGN Comment Normal . [facility] Comment on above: Order Comment: CYTOL OGY INFORMATION:- CLINICAL INFORMATION:- DATE LMP/MENOPAUSE: 06/07/18 LMP- COLLECTION VIAL: Thin Prep Vial- REGULATORY INTERNSHIP SOURCE: CERVICAL AND ENDOMETRIUM- COLLECTION TECHNIQUE: BRUSH/SPATULASpecimen Comment: [id number] Comment: Source.............Cervix;EndocervixSpecimen Comment: LMP / Prev Treat...[id number] Comment: No. of containers..01 ThinPrep Vial Result Comment: NEGA TIVE FOR INTRAEPITHELIAL LESION AND MALIGNANCY.CELLULAR CHANGES ASSOCIATED WITH INFLAMMATION ARE PRESENT. Performed By: #### L 7400.0350 ####[facility] (refer to report for specific site)refer to report for address and phone number HPV RFLX Comment Normal . [facility] Comment on above: Order Comment: CYTOL OGY INFORMATION:- CLINICAL INFORMATION:- DATE LMP/MENOPAUSE: 06/07/18 LMP- COLLECTION VIAL: Thin Prep Vial- REGULATORY INTERNSHIP SOURCE: CERVICAL AND ENDOMETRIUM- COLLECTION TECHNIQUE: BRUSH/SPATULASpecimen Comment: [id number] Comment: Source.............Cervix;EndocervixSpecimen Comment: LMP / Prev Treat...[id number] Comment: No. of containers..01 ThinPrep Vial Result Comment: The HPV DNA reflex criteria were not met with this specimenresult therefore, no HPV testing was performed.Performed at: [address] [id number] Director: Cecille Huber MD, Phone: [phone] Performed By: #### L 7400.0350 ####[facility] (refer to report for specific site)refer to report for address and phone number PAPSMR Comment Normal . [facility] Comment on above: Order Comment: CYTOL OGY INFORMATION:- CLINICAL INFORMATION:- DATE LMP/MENOPAUSE: 06/07/18 LMP- COLLECTION VIAL: Thin Prep Vial- REGULATORY INTERNSHIP SOURCE: CERVICAL AND ENDOMETRIUM- COLLECTION TECHNIQUE: BRUSH/SPATULASpecimen Comment: [id number] Comment: Source.............Cervix;EndocervixSpecimen Comment: LMP / Prev Treat...[id number] Comment: No. of containers..01 ThinPrep Vial Result Comment: The Pap smear is a screening test designed to aid in thedetection of premalignant and malignant conditions of theuterine cervix. It is not a diagnostic procedure andshould not be used as the sole means of detecting cervicalcancer. Both false-positive and false-negative reports dooccur. Performed By: #### L 7400.0350 ####[facility] (refer to report for specific site)refer to report for address and phone number PERFORM Comment Normal . [facility] Comment on above: Order Comment: CYTOL OGY INFORMATION:- CLINICAL INFORMATION:- DATE LMP/MENOPAUSE: 06/07/18 LMP- COLLECTION VIAL: Thin Prep Vial- REGULATORY INTERNSHIP SOURCE: CERVICAL AND ENDOMETRIUM- COLLECTION TECHNIQUE: BRUSH/SPATULASpecimen Comment: [id number] Comment: Source.............Cervix;EndocervixSpecimen Comment: LMP / Prev Treat...[id number] Comment: No. of containers..01 ThinPrep Vial Result Comment: Yoli Patterson, Drive Tester (ASCP) Performed By: #### L 7400.0350 ####[facility] (refer to report for specific site)refer to report for address and phone number TEST METHOD Comment Normal . [facility] Comment on above: Order Comment: CYTOL OGY INFORMATION:- CLINICAL INFORMATION:- DATE LMP/MENOPAUSE: 06/07/18 LMP- COLLECTION VIAL: Thin Prep Vial- REGULATORY INTERNSHIP SOURCE: CERVICAL AND ENDOMETRIUM- COLLECTION TECHNIQUE: BRUSH/SPATULASpecimen Comment: [id number] Comment: Source.............Cervix;EndocervixSpecimen Comment: LMP / Prev Treat...[id number] Comment: No. of containers..01 ThinPrep Vial Result Comment: This liquid based ThinPrep(R) pap test was screened withthe use of an image guided system. Performed By: #### L 7400.0350 ####[facility] (refer to report for specific site)refer to report for address and phone number Vital Signs Date Time Vital Sign Value Performing Clinician Nancy fuller 01-15-2025 09:01-0400 Body height 162.6 cm Amanda Tabor MD Work Phone: [facility] 01-15-2025 09:01-0400 Body mass index (BMI) [Ratio] 31.93 kg/m2 Amanda Tabor MD Work Phone: [facility] 01-15-2025 09:01-0400 Body weight 84.37 kg Amanda Tabor MD Work Phone: [facility] 01-15-2025 09:01-0400 Diastolic blood pressure 82 mm[Hg] Amanda Tabor MD Work Phone: [facility] 01-15-2025 09:01-0400 Heart rate 98 /min Amanda Tabro MD Work Phone: [facility] 01-15-2025 09:01-0400 SaO2% (BldA) [Mass fraction] 99 % Amanda Tabor MD Work Phone: [facility] 01-15-2025 09:01-0400 Systolic blood pressure 118 mm[Hg] Amanda Tabor MD Work Phone: [facility] 12-03-2024 07:30-0400 Body height 163.8 cm Florina [place] SUBSTATION MANAGER.[employer]UIT [employer] FARMWORKER Work Phone: [facility] 12-03-2024 07:30-0400 Body mass index (BMI) [Ratio] 31.11 kg/m2 Florina Kimmy SUBSTATION MANAGER.FRUIT II FARMWORKER Work Phone: [facility] 12-03-2024 07:30-0400 Body weight 83.46 kg Florina Kimmy SUBSTATION MANAGER.FRUIT II FARMWORKER Work Phone: [facility] 12-03-2024 07:30-0400 Diastolic blood pressure 74 mm[Hg] Florina Kimmy SUBSTATION MANAGER.FRUIT II FARMWORKER Work Phone: [facility] 12-03-2024 07:30-0400 Systolic blood pressure 126 mm[Hg] Florian [place] SUBSTATION MANAGER.FRUIT II FARMWORKER Work Phone: [facility] 10-15-2024 15:42-0400 Body height 165.1 cm Amanda Tabor MD Work Phone: [facility] 10-15-2024 15:42-0400 Body mass index (BMI) [Ratio] 30.42 kg/m2 Amanda Tabor MD Work Phone: [facility] 10-15-2024 15:42-0400 Body weight 82.92 kg Amanda Tabor MD Work Phone: [facility] 10-15-2024 15:42-0400 Diastolic blood pressure 68 mm[Hg] Amanda Tabor MD Work Phone: [facility] 10-15-2024 15:42-0400 Heart rate 92 /min Amanda Tabor MD Work Phone: [facility] 10-15-2024 15:42-0400 SaO2% (BldA) [Mass fraction] 98 % Amanda Tabor MD Work Phone: [facility] 10-15-2024 15:42-0400 Systolic blood pressure 118 mm[Hg] Amanda Tabor MD Work Phone: [facility] Encounters Encounter Date Encounter Type Care Provider Facility Start: 01-16-2025 End: 01-16-2025 ambulatory AMANDA TABOR Facility:[id number] Start: 01-15-2025 End: 01-15-2025 Patient encounter procedure Amanda Tabor MD Work Phone: [facility] [place] Comment on above: Migraine without aur a, not intractable, without status migrainosus (Primary Dx); Anxiety with depression; Combined hyperlipidemia Start: 01-15-2025 End: 01-15-2025 ambulatory AMANDA TABOR Facility:[id number] Start: 01-01-2025 End: 01-01-2025 Telephone encounter Amanda Tabor MD Work Phone: [facility] [place] Comment on above: Approved Ubrelvy Start: 12-19-2024 End: 12-19-2024 Telephone encounter Amanda Tabor MD Work Phone: [facility] [place] Comment on above: Ubrelvy is still und er review Start: 12-11-2024 End: 12-11-2024 Telephone encounter Amanda Tabor MD Work Phone: [facility] [place] Comment on above: Pending Ubrelvy Start: 12-04-2024 End: 12-04-2024 Telephone encounter Amanda Tabor MD Work Phone: [facility] Comment on above: Pending Ubrelvy 100M G tablets Start: 12-03-2024 End: 12-04-2024 Patient encounter procedure Florina Oneal APRN.FRUIT II FARMWORKER Work Phone: OB/Gynecology Comment on above: Encounter for gyneco logical examination (general) (routine) without abnormal findings (Primary Dx); Screening for cervical cancer; Encounter for screening for human papillomavirus (HPV); Encounter for surveillance of contraceptive pills Refill Request Asking about getting a renewal on my Ubrelvy Start: 12-03-2024 End: 12-03-2024 Patient encounter status Florina Virgencalf ISAAC Work Phone: [facility] Work Phone: Start: 12-03-2024 End: 12-04-2024 ambulatory Amanda Tabor MD Work Phone: [facility] Start: 12-03-2024 Encounter for gyneco logical examination (general) (routine) without abnormal findings FLORINA ONEAL [facility] Start: 10-16-2024 End: 10-16-2024 ambulatory AMANDA TABOR Facility:[id number] Start: 10-15-2024 End: 10-15-2024 ambulatory AMANDA TABOR Facility:[id number] Start: 10-15-2024 End: 10-15-2024 Patient encounter procedure Amanda Tabor MD Work Phone: [facility] Comment on above: Migraine without aur a and without status migrainosus, not intractable (Primary Dx); Obesity, Class I, BMI 30-34.9; Fatigue, unspecified type; Prediabetes; Vitamin D deficiency; Screening for lipid disorders; Screening for cervical cancer; Screening for depression; Encounter for screening examination for other mental health and behavioral disorders; Anxiety with depression; Special screening examination for viral disease; Screening for HIV (human immunodeficiency virus) Start: 06-11-2018 Patient encounter procedure Yoli carrasco Facility:[facility] Plan of Treatment Date Care Activity Detail Author Start: 12-03-2029 Screening for malign ant neoplasm of cervix Cervical Cancer Screening [facility] Start: 12-04-2025 End: 12-04-2025 Patient encounter procedure 12/04/2025 7:00 AM EDT Office Visit OB/Gynecology [address] [place] [id number] Florina Oneal APRN.FRUIT II [employer] [address] [place] [address] Annual OB/Gynecology Comment on above: Annual Start: 10-15-2025 Covid-19 Vaccine ( season) Covid-19 Vaccine ( season) [facility] Comment on above: Postponed from 04/07 (Declined at this time) Start: 10-15-2025 Hepatitis B Vaccine (1 of 3 - 19+ 3-dose series) Hepatitis B Vaccine (1 of 3 - 19+ 3-dose series) [facility] Comment on above: Postponed from 05/03 (Declined at this time) Start: 10-15-2025 Urine microalbumin profile DTaP,Tdap,Td Vaccine (1 - Tdap) [facility] Comment on above: Postponed from 05/03 (Declined at this time) Start: 07-18-2025 End: 07-18-2025 Patient encounter procedure 07/18/2025 8:15 AM EST Office Visit [facility] [address] [facility] [address] [facility] [id number] Amanda Tabor MD [address] [place] [address] 6 mo [facility] Comment on above: 6 mo Start: 04-07-2025 Influenza vaccination Influenz a Vaccine (Season Ended) [facility] Start: 02-03-2025 Influenza vaccination Influenza Vacc ine (#1) [facility] Comment on above: Postponed from 04/07 (Declined at this time) Start: 01-16-2025 End: 01-16-2025 ambulatory 01/16/2025 10:00 AM EDT Results Only [facility] [address] [facility] [place] [address] [facility] Start: 01-15-2025 End: 01-15-2026 CBC panel - Blood by Automated count COMPLETE BLOOD COUNT Lab Routine Migraine without aura, not intractable, without status migrainosus Combined hyperlipidemia Expected: 01/15/2025, Expires: 01/15/2026 [facility] Work Phone: Comment on above: Expected: 01/15/2025 , Expires: 01/15/2026 Start: 01-15-2025 End: 01-15-2026 Comprehensive metabolic 2000 panel - Serum or Plasma COMPREHENSIVE METABOLIC PANEL Lab Routine Combined hyperlipidemia Expected: 01/15/2025, Expires: 01/15/2026 [facility] Comment on above: Expected: 01/15/2025 , Expires: 01/15/2026 Start: 01-15-2025 End: 01-15-2026 Lipid 1996 panel - Serum or Plasma LIPID PANEL, FASTING Lab Routine Combined hyperlipidemia Expected: 01/15/2025, Expires: 01/15/2026 [facility] Comment on above: Expected: 01/15/2025 , Expires: 01/15/2026 Start: 01-15-2025 End: 01-15-2025 Patient encounter procedure [facility] Comment on above: 3 mo f/u Start: 10-16-2024 End: 10-16-2024 ambulatory 10/16/2024 9:00 AM EDT Results Only [facility] [address] [place] [address] [facility] Start: 10-15-2024 End: 10-15-2025 25-hydroxyvitamin D3 [Mass/volume] in Serum or Plasma VITAMIN D 25 HYDROXY Lab Routine Vitamin D deficiency Expected: 10/15/2024, Expires: 10/15/2025 [facility] Comment on above: Expected: 10/15/2024 , Expires: 10/15/2025 Start: 10-15-2024 End: 10-10-2025 CBC W Auto Differential panel - Blood COMPLETE BLOOD COUNT AND DIFFERENTIAL Lab Routine Migraine without aura and without status migrainosus, not intractable Expected: 10/15/2024, Expires: 10/10/2025 [facility] Work Phone: Comment on above: Expected: 10/15/2024 , Expires: 10/10/2025 Start: 10-15-2024 End: 10-15-2025 Comprehensive metabolic 2000 panel - Serum or Plasma COMPREHENSIVE METABOLIC PANEL Lab Routine Migraine without aura and without status migrainosus, not intractable Expected: 10/15/2024, Expires: 10/15/2025 [facility] Comment on above: Expected: 10/15/2024 , Expires: 10/15/2025 Start: 10-15-2024 End: 10-15-2025 Hemoglobin A1c in Blood HEMOGLOBIN A1C Lab Routine Prediabetes Expected: 10/15/2024, Expires: 10/15/2025 [facility] Comment on above: Expected: 10/15/2024 , Expires: 10/15/2025 Start: 10-15-2024 End: 01-14-2025 Hepatitis C virus Ab [Presence] in Serum HEPATITIS C ANTIBODY IA WITH CONFIRMATION Lab Routine Special screening examination for viral disease Expected: 10/15/2024, Expires: 01/14/2025 [facility] Comment on above: Expected: 10/15/2024 , Expires: 01/14/2025 Start: 10-15-2024 End: 01-14-2025 HIV 1+2 Ab [Presence] in Serum or Plasma by Immunoassay HIV 1/2 COMBO WITH REFLEX TO DIFFERENTIATION Lab Routine Screening for HIV (human immunodeficiency virus) Expected: 10/15/2024, Expires: 01/14/2025 [facility] Comment on above: Expected: 10/15/2024 , Expires: 01/14/2025 Start: 10-15-2024 End: 10-15-2025 Lipid 1996 panel - Serum or Plasma LIPID PANEL BASIC Lab Routine Screening for lipid disorders Expected: 10/15/2024, Expires: 10/15/2025 [facility] Comment on above: Expected: 10/15/2024 , Expires: 10/15/2025 Start: 10-15-2024 End: 10-15-2025 Thyrotropin [Units/volume] in Serum or Plasma THYROID STIMULATING HORMONE Lab Routine Fatigue, unspecified type Expected: 10/15/2024, Expires: 10/15/2025 [facility] Comment on above: Expected: 10/15/2024 , Expires: 10/15/2025 Start: 2012 Screening for malign ant neoplasm of cervix Cervical Cancer Screening [facility] Start: 2009 Hepatitis C screening Hepatitis C Arnaldo simmons [facility] Start: 2009 HIV screening HIV Screening [facility] PAP TEST PAP TEST Lab Bharti ji Encounter for gynecological examination (general) (routine) without abnormal findings Screening for cervical cancer Encounter for screening for human papillomavirus (HPV) Ordered: 12/03/2024 [facility] Work Phone: Comment on above: Ordered: 12/03/2024 Immunizations Immunization Date Immunization Notes Care Provider Fa efrem 05-01-2017 influenza, injectabl e, quadrivalent, contains preservative Florina Kimmy SUBSTATION MANAGER.FAIZAN Work Phone: [facility] 05-01-2017 influenza virus vacc ine, unspecified formulation Amanda Tabor MD Work Phone: [facility] Payers Date Payer Category Payer Private Health Insurance [id number] 2024 Unknown [id number] 2018 Private Health Insurance [id number] 2018 Self-pay Unknown [id number] Social History Date Type Detail Facility Start: [facility]-15-[facility]24 [facility] Start: 10-15-2024 Tobacco use and exposure Smokeless tobacco non-user [facility] Start: 10-15-2024 End: 01-15-2025 Alcoholic beverage intake Ex-drinker (finding) [facility] Start: 10-15-2024 End: 12-03-2024 History of Social function [facility] Start: 10-15-2024 End: 12-03-2024 [facility] Utilities [facility] Has the [employer], or [employer] threatened to shut off services in your home in past 12Mo No [facility] Are you now , , , , never or living with a partner? Living with partner [facility] How often to you hav e a drink containing alcohol? Never [facility] How many standard drinks containing alcohol do you have on a typical day? Patient does not drink [facility] How hard is it for y ou to pay for the very basics like food, housing, medical care, and heating Not very hard [facility] Do you feel stress - tense, restless, nervous, or anxious, or unable to sleep at night because your mind is troubled all the time - these days [OSQ] Very much [facility] (I/We) worried cash er (my/our) food would run out before (I/we) got money to buy more. Never true [facility] Start: 1990 Sex assigned at Female [facility] Start: 10-15-2024 Gender identity Identifies as female gender (finding) [facility] Start: 10-15-2024 Sexual orientation Choose not to dis close [facility] NEGATED: Highlighted rowStart: NINF History of tobacco use Passive smoker [facility] Functional Status Date Assessment Result Facility 10-15-2024 Humiliation, Afraid, Rape, and Kick questionnaire [HARK] [facility] 10-15-2024 Total score [AUDIT-C] 0 10/16/19 25 3:43 PM EDT Ladarius Ayala [facility] Clinical Notes 10-15-2024 to 01-15-2025 Patient InstructionsAl Amanda Huntley MD - 01/15/2025 9:20 AM EDTTelephone Encounter - Dev Mcgoawn MA - 01/01/2025 10:18 AM EDFlorina Kirkland APRN.CNP - 12/03/2024 7:19 AM EDT Note Date & Type Note Facility 01-15-2025 Instructions Al Amanda Huntley MD - 01/15/2025 9:26 AM EDT - Continue using Ubrelvy as needed for migraine relief (you ve used it about three times since October). - Continue taking Pamelor (nortriptyline) once daily for migraine prevention. - Start fenofibrate (brand name Lofebra) at a medium dose once daily; [facility] [address]. - Keep avoiding known migraine triggers: alcohol, artificial sugars, artificial dyes, and MSG/derivatives. - Follow a heart-healthy diet and maintain regular exercise to help lower cholesterol and triglycerides. - Repeat fasting cholesterol and triglyceride blood tests in 6 months. documented in this encounter [facility] 01-15-2025 Note HNO ID: [id number] Author: AMANDA TABOR MD Service: ? Author Type: Physician Type: Progress Notes Filed: 01/15/2025 09:27 Note Text: Tayo Venegas is a 34-year-old female with a history of migraines, presenting for follow-up and evaluation of hyperlipidemia. Migraines: - Taking Ubrelvy PRN; Tayo has used it three times since last visit in October. - Daily medication, Pamelor, reportedly effective in reducing frequency. - Identified triggers include alcohol, artificial sugars, artificial dyes, and MSG. - Tayo avoids alcohol and foods high in artificial sugars, dyes, and MSG. Hyperlipidemia: - Recent labs show total cholesterol 303 mg/dL, triglycerides 351 mg/dL, LDL 109 mg/dL. - Family history of hyperlipidemia on paternal side. - Discussed dietary challenges in managing triglycerides, particularly avoiding sugar. - Tayo is open to medication management. 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 ALLERGIES Allergen Reactions Penicillin V Unknown Current Outpatient Medications Medication Sig ubrogepant (UBRELVY) 100 mg tablet Take 1 tablet by mouth once daily as needed. Magnesium 200 mg tab Take by mouth once daily. 400 mg multivit,thx,calcium,iron,mins (MULTIVITAMIN AND MINERAL ORAL) Take by mouth once daily. methylsulfonylmethane (MSM ORAL) Take by mouth once daily. Norethindrone-Eth Estradiol (OVCON-35) 0.4-35 mg-mcg per tablet Take 1 tablet by mouth once daily. Take active pills only. Start a new pack every 3 weeks. nortriptyline (PAMELOR) 10 mg capsule Take 1 capsule by mouth once daily. fenofibrate (LOFIBRA) 67 mg capsule Take 1 capsule by mouth daily with breakfast. No current facility-administered medications for this visit. PAST MEDICAL HISTORY Diagnosis Date Anxiety state Depression Pt reported Migraines PAST SURGICAL HISTORY Procedure Laterality Date PT ED DENTAL HEALTH FAMILY HISTORY Problem Relation Age of Onset Stroke Mother passed 2019 Kidney Disease Mother Diabetes Mother Breast Cancer Mother late 40s/early 50s Arthritis Mother Hyperlipidemia Mother Stroke Father Cancer Father lung CA COPD Father Alcohol/Drug Father Hyperlipidemia Father Cancer Maternal Grandmother Arthritis Maternal Grandmother Diabetes Maternal Grandfather Arthritis Maternal Grandfather Diabetes Paternal Grandfather COPD Paternal Grandfather Cancer Paternal Grandfather lung and throat cancer Diabetes Other Arthritis Other Social History Tobacco Use Smoking status: Never Passive exposure: Never Smokeless tobacco: Never Vaping Use Vaping status: Never Used Substance Use Topics Alcohol use: Not Currently Drug use: Not Currently All medications have been reviewed and verified. Neurological: (+) migraine headaches VITALS: Blood pressure 118/82, pulse 98, height 162.6 cm (5' 4), weight 84.4 kg (186 lb), last menstrual period 04/07/2023, SpO2 99%., Body mass index is 31.93 kg/m?. GENERAL: NAD, alert and oriented SKIN: unremarkable, no rash or skin lesions. HEAD: normocephalic EYES: PERRLA, EOMI, conjunctiva clear EARS: external ears normal, canals clear, TM's normal. NOSE/SINUSES: Nares normal. Septum midline. OROPHARYNX: lips, mucosa, and tongue normal, good dentition. No oral lesions noted. NECK: Supple, no lymphadenopathy, normal thyroid, no carotid bruits. LUNGS: Clear to auscultation bilaterally, no wheezes/rhonchi/rales. HEART: Regular rate and rhythm, no murmurs. No ectopy. EXTREMITIES: Normal, No deformities, No skin discoloration, No edema. NEURO: Awake, alert and oriented x3, cranial nerves II-XII grossly intact, normal gait, no involuntary motions 1. Migraine without aura, not intractable, without status migrainosus (G43.009) - Migraines are well-controlled with current medication regimen; only required Ubrelvy three times since last visit. - Continue current preventive medication, Pamelor. - Continue to avoid known food and environmental triggers. 2. Anxiety with depression (F41.8) 3. 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 - Discussed family history of hyperlipidemia. - Initiated fenofibrate, medium dose, once daily. - Advised on the importance of diet and exercise. - Repeat lipid panel in 6 months to monitor response to treatment. 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 Patient/authorized containers sales representative agreed to proceed Amanda Tabor MD [facility] 01-15-2025 History of Presen t illness Narrative Tayo Venegas is a 34-year-old female with a history of migraines, presenting for follow-up and evaluation of hyperlipidemia. Migraines: - Taking Ubrelvy PRN; Tayo has used it three times since last visit in October. - Daily medication, Pamelor, reportedly effective in reducing frequency. - Identified triggers include alcohol, artificial sugars, artificial dyes, and MSG. - Tayo avoids alcohol and foods high in artificial sugars, dyes, and MSG. Hyperlipidemia: - Recent labs show total cholesterol 303 mg/dL, triglycerides 351 mg/dL, LDL 109 mg/dL. - Family history of hyperlipidemia on paternal side. - Discussed dietary challenges in managing triglycerides, particularly avoiding sugar. - Tayo is open to medication management. 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 ALLERGIES Allergen Reactions Penicillin V Unknown Current Outpatient Medications Medication Sig ubrogepant (UBRELVY) 100 mg tablet Take 1 tablet by mouth once daily as needed. Magnesium 200 mg tab Take by mouth once daily. 400 mg multivit,thx,calcium,iron,mins (MULTIVITAMIN AND MINERAL ORAL) Take by mouth once daily. methylsulfonylmethane (MSM ORAL) Take by mouth once daily. Norethindrone-Eth Estradiol (OVCON-35) 0.4-35 mg-mcg per tablet Take 1 tablet by mouth once daily. Take active pills only. Start a new pack every 3 weeks. nortriptyline (PAMELOR) 10 mg capsule Take 1 capsule by mouth once daily. fenofibrate (LOFIBRA) 67 mg capsule Take 1 capsule by mouth daily with breakfast. No current facility-administered medications for this visit. PAST MEDICAL HISTORY Diagnosis Date Anxiety state Depression Pt reported Migraines PAST SURGICAL HISTORY Procedure Laterality Date PT ED DENTAL HEALTH FAMILY HISTORY Problem Relation Age of Onset Stroke Mother passed 2019 Kidney Disease Mother Diabetes Mother Breast Cancer Mother late 40s/early 50s Arthritis Mother Hyperlipidemia Mother Stroke Father Cancer Father lung CA COPD Father Alcohol/Drug Father Hyperlipidemia Father Cancer Maternal Grandmother Arthritis Maternal Grandmother Diabetes Maternal Grandfather Arthritis Maternal Grandfather Diabetes Paternal Grandfather COPD Paternal Grandfather Cancer Paternal Grandfather lung and throat cancer Diabetes Other Arthritis Other Social History Tobacco Use Smoking status: Never Passive exposure: Never Smokeless tobacco: Never Vaping Use Vaping status: Never Used Substance Use Topics Alcohol use: Not Currently Drug use: Not Currently All medications have been reviewed and verified. Neurological: (+) migraine headaches VITALS: Blood pressure 118/82, pulse 98, height 162.6 cm (5' 4), weight 84.4 kg (186 lb), last menstrual period 04/07/2023, SpO2 99%., Body mass index is 31.93 kg/m . GENERAL: NAD, alert and oriented SKIN: unremarkable, no rash or skin lesions. HEAD: normocephalic EYES: PERRLA, EOMI, conjunctiva clear EARS: external ears normal, canals clear, TM's normal. NOSE/SINUSES: Nares normal. Septum midline. OROPHARYNX: lips, mucosa, and tongue normal, good dentition. No oral lesions noted. NECK: Supple, no lymphadenopathy, normal thyroid, no carotid bruits. LUNGS: Clear to auscultation bilaterally, no wheezes/rhonchi/rales. HEART: Regular rate and rhythm, no murmurs. No ectopy. EXTREMITIES: Normal, No deformities, No skin discoloration, No edema. NEURO: Awake, alert and oriented x3, cranial nerves II-XII grossly intact, normal gait, no involuntary motions 1. Migraine without aura, not intractable, without status migrainosus (G43.009) - Migraines are well-controlled with current medication regimen; only required Ubrelvy three times since last visit. - Continue current preventive medication, Pamelor. - Continue to avoid known food and environmental triggers. 2. Anxiety with depression (F41.8) 3. 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 - Discussed family history of hyperlipidemia. - Initiated fenofibrate, medium dose, once daily. - Advised on the importance of diet and exercise. - Repeat lipid panel in 6 months to monitor response to treatment. 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 Patient/authorized containers sales representative agreed to proceed Amanda Tabor MD documented in this encounter [facility] 01-01-2025 Telephone encounter Note Items addressed in this encounter: Prior Authorization Approved Ubrelvy Authorized through 12/08/2025 Able to close encounter. Dev Mcgowan MA January 01, 2025 10:18 AM 10:18 AM [facility] 01-01-2025 Miscellaneous Notes Items addressed in this encounter: Prior Authorization Approved Ubrelvy Authorized through 12/08/2025 Able to close encounter. Dev Mcgowan MA January 01, 2025 10:18 AM 10:18 AM documented in this encounter [facility] 12-19-2024 Telephone encounter Note Items addressed in this encounter: Prior Authorization Ubrelvy is still under review Able to close encounter. Dev Mcgowan MA December 19, 2024 9:45 AM 9:45 AM [facility] 12-19-2024 Miscellaneous Notes Items addressed in this encounter: Prior Authorization Ubrelvy is still under review Able to close encounter. Dev Mcgowan MA December 19, 2024 9:45 AM 9:45 AM documented in this encounter [facility] 12-11-2024 Telephone encounter Note Items addressed in this encounter: Prior Authorization Pending Ubrelvy PA form faxed to [employer] [facility] dept Able to close encounter. Dev Mcgowan MA December 11, 2024 9:37 AM 9:37 AM [facility] 12-11-2024 Miscellaneous Notes Items addressed in this encounter: Prior Authorization Pending Ubrelvy PA form faxed to [facility] [employer] [facility] dept Able to close encounter. Dev Mcgowan MA December 11, 2024 9:37 AM 9:37 AM documented in this encounter [facility] 12-04-2024 Telephone encounter Note Items addressed in this encounter: Prior Authorization Pending Ubrelvy 100MG tablets [employer] [id number] Cover My Meds Able to close encounter. Dev Mcgowan MA December 04, 2024 6:24 AM 6:24 AM [facility] 12-04-2024 Miscellaneous Notes Items addressed in this encounter: Prior Authorization Pending Ubrelvy 100MG tablets [place] [id number] Cover My Meds Able to close encounter. Dev Mcgowan MA December 04, 2024 6:24 AM 6:24 AM documented in this encounter [facility] 12-03-2024 Note HNO ID: [id number] Author: FLORINA ONEAL APRN.FRUIT II FARMWORK[employer] Service: ? Author Type: Nurse Practitioner Type: Progress Notes Filed: 12/03/2024 08:17 Note Text: Patient declined day care home mother. Clarity is a 34 year old who presents for an annual gynecologic exam without complaints. 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 FAMILY HISTORY Problem Relation Age of Onset Stroke Mother Kidney Disease Mother Diabetes Mother Cancer Mother Arthritis Mother Hyperlipidemia Mother Stroke Father Cancer Father COPD Father Alcohol/Drug Father Hyperlipidemia Father Cancer Maternal Grandmother Arthritis Maternal Grandmother Diabetes Maternal Grandfather Arthritis Maternal Grandfather Diabetes Paternal Grandfather COPD Paternal Grandfather Cancer Paternal Grandfather Diabetes Other Arthritis Other SOCIAL HISTORY Social History Tobacco Use Smoking status: Never Passive exposure: Never Smokeless tobacco: Never Vaping Use Vaping status: Never Used Substance Use Topics Alcohol use: Not Currently Drug use: Not Currently REVIEW OF SYSTEMS Abdomen: No abdominal pain, nausea, vomiting, or constipation. Med related diarrhea. No bloating, early satiety, indigestion, or increased flatulence. Bladder: No dysuria, gross hematuria, urinary frequency, urinary urgency, or incontinence. Breast: No breast lumps, nipple d/c, overlying skin changes, redness or skin retraction. Allergies and current medication updated:Yes SENSITIVE EXAM: The sensitive examination was discussed with the Patient or Patient's Authorized Breast Trimmer. As applicable, any other physician, advance practice provider, medical student, or other health professional student that will be observing or involved in the sensitive examination for educational or training purposes was discussed with the Patient or Authorized Breast Trimmer. The Patient or Authorized Breast Trimmer has agreed to proceed with the sensitive examination. (Sensitive examination includes inspection and/or palpation of the breasts, pelvis, prostate and anorectal regions). EXAM: BP 126/74 Ht 5' 4.488 (1.64m) Wt 184 lb (83.5kg) LMP 04/07/2023 BMI 31.11 kg/(m2). GENERAL: pleasant, female in no apparent distress HEENT: Normocephalic, atraumatic, mucus membranes moist, and no lesions NECK: Supple, full range of motion, no adenopathy, and thyroid normal DERMATOLOGY: Normal, without lesions, non-icteric, and non-hirsute BREAST: soft, non-tender, symmetric, no dominant mass, normal nipple-areolar complex, no lymphadenopathy, and no nipple discharge CHEST: Normal inspiratory effort ABDOMEN: soft, non-tender, and no masses PELVIC: external genitalia normal, normal Bartholin's glands, urethra, [place]'s glands, no vulvar lesions, no cervical lesions, good vaginal support, physiologic discharge present, normal appearing perineal body and perianal region BIMANUAL: uterus normal size, shape and consistency, no adnexal masses, and non-tender RECTOVAGINAL: deferred. NEURO: alert and oriented x3,exam grossly non-focal EXTREMITIES: normal ASSESSMENT/PLAN: 1) Health maintenance: Pap done with HPV. Mammogram starting age 40. Nutrition, exercise and routine health maintenance exams reviewed. Calcium/Vitamin D supplementation information provided. Colon cancer screening: start at age 45 2) Contraception: combined hormonal contraceptives. Contraceptive options reviewed and information provided. 3) STD screening: Declined STD check. 4) Follow up one year or sooner as needed Florina Oneal APRN.FAIZAN [facility] 12-03-2024 History of Presen t illness Narrative Patient declined day care home mother. Clarity is a 34 year old who presents for an annual gynecologic exam without complaints. 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 FAMILY HISTORY Problem Relation Age of Onset Stroke Mother Kidney Disease Mother Diabetes Mother Cancer Mother Arthritis Mother Hyperlipidemia Mother Stroke Father Cancer Father COPD Father Alcohol/Drug Father Hyperlipidemia Father Cancer Maternal Grandmother Arthritis Maternal Grandmother Diabetes Maternal Grandfather Arthritis Maternal Grandfather Diabetes Paternal Grandfather COPD Paternal Grandfather Cancer Paternal Grandfather Diabetes Other Arthritis Other SOCIAL HISTORY Social History Tobacco Use Smoking status: Never Passive exposure: Never Smokeless tobacco: Never Vaping Use Vaping status: Never Used Substance Use Topics Alcohol use: Not Currently Drug use: Not Currently REVIEW OF SYSTEMS Abdomen: No abdominal pain, nausea, vomiting, or constipation. Med related diarrhea. No bloating, early satiety, indigestion, or increased flatulence. Bladder: No dysuria, gross hematuria, urinary frequency, urinary urgency, or incontinence. Breast: No breast lumps, nipple d/c, overlying skin changes, redness or skin retraction. Allergies and current medication updated:Yes SENSITIVE EXAM: The sensitive examination was discussed with the Patient or Patient's Authorized Breast Trimmer. As applicable, any other physician, advance practice provider, medical student, or other health professional student that will be observing or involved in the sensitive examination for educational or training purposes was discussed with the Patient or Authorized Breast Trimmer. The Patient or Authorized Breast Trimmer has agreed to proceed with the sensitive examination. (Sensitive examination includes inspection and/or palpation of the breasts, pelvis, prostate and anorectal regions). EXAM: BP 126/74 Ht 5' 4.488 (1.64m) Wt 184 lb (83.5kg) LMP 04/07/2023 BMI 31.11 kg/(m^2). GENERAL: pleasant, female in no apparent distress HEENT: Normocephalic, atraumatic, mucus membranes moist, and no lesions NECK: Supple, full range of motion, no adenopathy, and thyroid normal DERMATOLOGY: Normal, without lesions, non-icteric, and non-hirsute BREAST: soft, non-tender, symmetric, no dominant mass, normal nipple-areolar complex, no lymphadenopathy, and no nipple discharge CHEST: Normal inspiratory effort ABDOMEN: soft, non-tender, and no masses PELVIC: external genitalia normal, normal Bartholin's glands, urethra, [place]'s glands, no vulvar lesions, no cervical lesions, good vaginal support, physiologic discharge present, normal appearing perineal body and perianal region BIMANUAL: uterus normal size, shape and consistency, no adnexal masses, and non-tender RECTOVAGINAL: deferred. NEURO: alert and oriented x3,exam grossly non-focal EXTREMITIES: normal ASSESSMENT/PLAN: 1) Health maintenance: Pap done with HPV. Mammogram starting age 40. Nutrition, exercise and routine health maintenance exams reviewed. Calcium/Vitamin D supplementation information provided. Colon cancer screening: start at age 45 2) Contraception: combined hormonal contraceptives. Contraceptive options reviewed and information provided. 3) STD screening: Declined STD check. 4) Follow up one year or sooner as needed Florina Oneal APRN.FAIZAN documented in this encounter [facility] 10-15-2024 Note HNO ID: [id number] Author: AMANDA TABOR MD Service: ? Author Type: Physician Type: Progress Notes Filed: 10/15/2024 16:04 Note Text: This note was created using [employer]. Subjective Clarity Theo is a 34 year old female. HPI New patient to establish care Migraines seeing neurology on nortriptyline daily helps. Takes ubrelvy as needed. Family hx of DM , Hypothyroidism. Mother at age of 56 y.o from renal failure complication . PAST MEDICAL HISTORY Diagnosis Date Migraines PAST SURGICAL HISTORY Procedure Laterality Date PT ED DENTAL HEALTH Social History Tobacco Use Smoking status: Never Passive exposure: Never Smokeless tobacco: Never Vaping Use Vaping status: Never Used Substance Use Topics Alcohol use: Not Currently Drug use: Not Currently All medications have been reviewed and verified. Review of Systems Constitutional: Positive for fatigue. Negative for fever. HENT: Negative for congestion, dental problem, drooling and ear discharge. Eyes: Negative for pain, discharge and itching. Respiratory: Negative for cough, chest tightness, shortness of breath and wheezing. Cardiovascular: Negative for chest pain, palpitations and leg swelling. Gastrointestinal: Negative for abdominal pain, blood in stool and constipation. Endocrine: Negative for cold intolerance, heat intolerance, polydipsia, polyphagia and polyuria. Genitourinary: Negative for difficulty urinating, dysuria, enuresis and flank pain. Skin: Negative for color change and pallor. Allergic/Immunologic: Negative for environmental allergies, food allergies and immunocompromised state. Neurological: Negative for dizziness, facial asymmetry, light-headedness and headaches. Hematological: Negative for adenopathy. Does not bruise/bleed easily. Objective BP 118/68 Pulse 92 Ht 165.1 cm (5' 5) Wt 82.9 kg (182 lb 12.8 oz) SpO2 98% BMI 30.42 kg/m? Physical Exam Vitals and nursing note reviewed. Constitutional: General: She is not in acute distress. Appearance: Normal appearance. She is obese. She is not ill-appearing. HENT: Head: Normocephalic and atraumatic. Nose: Nose normal. No congestion or rhinorrhea. Eyes: Pupils: Pupils are equal, round, and reactive to light. Cardiovascular: Rate and Rhythm: Normal rate and regular rhythm. Pulses: Normal pulses. Heart sounds: Normal heart sounds. No murmur heard. Pulmonary: Effort: Pulmonary effort is normal. No respiratory distress. Breath sounds: Normal breath sounds. No wheezing, rhonchi or rales. Abdominal: General: Bowel sounds are normal. Palpations: Abdomen is soft. There is no mass. Tenderness: There is no abdominal tenderness. Hernia: No hernia is present. Musculoskeletal: General: Normal range of motion. Cervical back: Normal range of motion and neck supple. Lymphadenopathy: Cervical: No cervical adenopathy. Skin: Findings: No bruising, lesion or rash. Neurological: General: No focal deficit present. Mental Status: She is alert and oriented to person, place, and time. Mental status is at baseline. Cranial Nerves: No cranial nerve deficit. Motor: No weakness. Gait: Gait normal. Psychiatric: Mood and Affect: Mood normal. Behavior: Behavior normal. Assessment and Plan ASSESSMENT/PLAN: 1. Migraine without aura and without status migrainosus, not intractable - ICD9: 346.10, ICD10: G43.009 (primary diagnosis) - NORTRIPTYLINE 10 MG CAPSULE - NORTRIPTYLINE 10 MG CAPSULE - COMPLETE BLOOD COUNT AND DIFFERENTIAL - COMPREHENSIVE METABOLIC PANEL 2. Obesity, Class I, BMI 30-34.9 - ICD9: 278.00, ICD10: E66.811 Obesity Body mass index is 30.42 kg/m?. Last Wt 10/15/24 : 82.9 kg (182 lb 12.8 oz) 5% weight loss = 174 lbs, 10% weight loss = 165 lbs The patient is asked to make an attempt to improve diet and exercise patterns to aid in medical management of this problem. Counseling 15 min . 3. Fatigue, unspecified type - ICD9: 780.79, ICD10: R53.83 - THYROID STIMULATING HORMONE 4. Prediabetes - ICD9: 790.29, ICD10: R73.03 - HEMOGLOBIN A1C 5. Vitamin D deficiency - ICD9: 268.9, ICD10: E55.9 - VITAMIN D 25 HYDROXY 6. Screening for lipid disorders - ICD9: V77.91, ICD10: Z13.220 - LIPID PANEL BASIC 7. Screening for cervical cancer - ICD9: V76.2, ICD10: Z12.4 - CONSULT TO GYNECOLOGY 8. Screening for depression - ICD9: V79.0, ICD10: Z13.31 - DEPRESSION SCREENING 9. Encounter for screening examination for other mental health and behavioral disorders - ICD9: V79.8, ICD10: Z13.39 - ANXIETY SCREENING 10. Anxiety with depression - ICD9: 300.4, ICD10: F41.8 11. Special screening examination for viral disease - ICD9: V73.99, ICD10: Z11.59 - HEPATITIS C ANTIBODY IA WITH CONFIRMATION 12. Screening for HIV (human immunodeficiency virus) - ICD9: V73.89, ICD10: Z11.4 - HIV 1/2 COMBO WITH REFLEX TO DIFFERENTIATION Amanda Tabor MD [facility] 10-15-2024 History of Presen t illness Narrative This note was created using [employer]. Subjective Clarity Theo is a 34 year old female. HPI New patient to establish care Migraines seeing neurology on nortriptyline daily helps. Takes ubrelvy as needed. Family hx of DM , Hypothyroidism. Mother at age of 56 y.o from renal failure complication . PAST MEDICAL HISTORY Diagnosis Date Migraines PAST SURGICAL HISTORY Procedure Laterality Date PT ED DENTAL HEALTH Social History Tobacco Use Smoking status: Never Passive exposure: Never Smokeless tobacco: Never Vaping Use Vaping status: Never Used Substance Use Topics Alcohol use: Not Currently Drug use: Not Currently All medications have been reviewed and verified. Review of Systems Constitutional: Positive for fatigue. Negative for fever. HENT: Negative for congestion, dental problem, drooling and ear discharge. Eyes: Negative for pain, discharge and itching. Respiratory: Negative for cough, chest tightness, shortness of breath and wheezing. Cardiovascular: Negative for chest pain, palpitations and leg swelling. Gastrointestinal: Negative for abdominal pain, blood in stool and constipation. Endocrine: Negative for cold intolerance, heat intolerance, polydipsia, polyphagia and polyuria. Genitourinary: Negative for difficulty urinating, dysuria, enuresis and flank pain. Skin: Negative for color change and pallor. Allergic/Immunologic: Negative for environmental allergies, food allergies and immunocompromised state. Neurological: Negative for dizziness, facial asymmetry, light-headedness and headaches. Hematological: Negative for adenopathy. Does not bruise/bleed easily. Objective BP 118/68 Pulse 92 Ht 165.1 cm (5' 5) Wt 82.9 kg (182 lb 12.8 oz) SpO2 98% BMI 30.42 kg/m Physical Exam Vitals and nursing note reviewed. Constitutional: General: She is not in acute distress. Appearance: Normal appearance. She is obese. She is not ill-appearing. HENT: Head: Normocephalic and atraumatic. Nose: Nose normal. No congestion or rhinorrhea. Eyes: Pupils: Pupils are equal, round, and reactive to light. Cardiovascular: Rate and Rhythm: Normal rate and regular rhythm. Pulses: Normal pulses. Heart sounds: Normal heart sounds. No murmur heard. Pulmonary: Effort: Pulmonary effort is normal. No respiratory distress. Breath sounds: Normal breath sounds. No wheezing, rhonchi or rales. Abdominal: General: Bowel sounds are normal. Palpations: Abdomen is soft. There is no mass. Tenderness: There is no abdominal tenderness. Hernia: No hernia is present. Musculoskeletal: General: Normal range of motion. Cervical back: Normal range of motion and neck supple. Lymphadenopathy: Cervical: No cervical adenopathy. Skin: Findings: No bruising, lesion or rash. Neurological: General: No focal deficit present. Mental Status: She is alert and oriented to person, place, and time. Mental status is at baseline. Cranial Nerves: No cranial nerve deficit. Motor: No weakness. Gait: Gait normal. Psychiatric: Mood and Affect: Mood normal. Behavior: Behavior normal. Assessment and Plan ASSESSMENT/PLAN: 1. Migraine without aura and without status migrainosus, not intractable - ICD9: 346.10, ICD10: G43.009 (primary diagnosis) - NORTRIPTYLINE 10 MG CAPSULE - NORTRIPTYLINE 10 MG CAPSULE - COMPLETE BLOOD COUNT AND DIFFERENTIAL - COMPREHENSIVE METABOLIC PANEL 2. Obesity, Class I, BMI 30-34.9 - ICD9: 278.00, ICD10: E66.811 Obesity Body mass index is 30.42 kg/m . Last Wt 10/15/24 : 82.9 kg (182 lb 12.8 oz) 5% weight loss = 174 lbs, 10% weight loss = 165 lbs The patient is asked to make an attempt to improve diet and exercise patterns to aid in medical management of this problem. Counseling 15 min . 3. Fatigue, unspecified type - ICD9: 780.79, ICD10: R53.83 - THYROID STIMULATING HORMONE 4. Prediabetes - ICD9: 790.29, ICD10: R73.03 - HEMOGLOBIN A1C 5. Vitamin D deficiency - ICD9: 268.9, ICD10: E55.9 - VITAMIN D 25 HYDROXY 6. Screening for lipid disorders - ICD9: V77.91, ICD10: Z13.220 - LIPID PANEL BASIC 7. Screening for cervical cancer - ICD9: V76.2, ICD10: Z12.4 - CONSULT TO GYNECOLOGY 8. Screening for depression - ICD9: V79.0, ICD10: Z13.31 - DEPRESSION SCREENING 9. Encounter for screening examination for other mental health and behavioral disorders - ICD9: V79.8, ICD10: Z13.39 - ANXIETY SCREENING 10. Anxiety with depression - ICD9: 300.4, ICD10: F41.8 11. Special screening examination for viral disease - ICD9: V73.99, ICD10: Z11.59 - HEPATITIS C ANTIBODY IA WITH CONFIRMATION 12. Screening for HIV (human immunodeficiency virus) - ICD9: V73.89, ICD10: Z11.4 - HIV 1/2 COMBO WITH REFLEX TO DIFFERENTIATION Amanda Tabor MD documented in this encounter [facility] Evaluation note Diagnosis Migraine without aura and without status migrainosus, not intractable- Primary Migraine without aura, without mention of intractable migraine without mention of status migrainosus Obesity, Class I, BMI 30-34.9 Obesity, unspecified Fatigue, unspecified type Prediabetes Other abnormal glucose Vitamin D deficiency Unspecified vitamin D deficiency Screening for lipid disorders Screening for cervical cancer Screening for malignant neoplasm of the cervix Screening for depression Encounter for screening examination for other mental health and behavioral disorders Anxiety with depression Special screening examination for viral disease Special screening examination for unspecified viral disease Screening for HIV (human immunodeficiency virus) Special screening examination for other specified viral diseases [facility] Encounter for gynecological examination (general) (routine) without abnormal findings- Primary Screening for cervical cancer Screening for malignant neoplasm of the cervix Encounter for screening for human papillomavirus (HPV) Special screening examination for human papillomavirus (HPV) Encounter for surveillance of contraceptive pills Surveillance of previously prescribed contraceptive pill [facility] Diagnosis Migraine without aura and without status migrainosus, not intractable Migraine without aura, without mention of intractable migraine without mention of status migrainosus [facility] Diagnosis Migraine without aura and without status migrainosus, not intractable- Primary Migraine without aura, without mention of intractable migraine without mention of status migrainosus [facility] Diagnosis Migraine without aura, not intractable, without status migrainosus- Primary Anxiety with depression Combined hyperlipidemia Mixed hyperlipidemia documented in this encounter [facility] Summary Purpose Family History No Family History Records FoundNo Family History Records FoundNo Family History Records Found Advance Directives No Advanced Directives Records FoundNo Advanced Directives Records FoundNo Advanced Directives Records Found Additional Source Comments INFORMATION SOURCE (unrecogn ized section and content) DATE CREATED AUTHOR 07/15/2018 [facility] DATE CREATED AUTHOR AUTHOR'S ORGANIZ ATION 12/12/2024 [facility] [place] DATE CREATED AUTHOR AUTHOR'S ORGANIZ ATION 01/17/2025 [facility] nter Source Comments (unrecognize d section and content) In the event this informatio n is protected by the Federal Confidentiality of Alcohol and Drug Abuse Patient Records regulations: The Federal rules restrict any use of the information to criminally investigate or prosecute any alcohol or drug abuse patient.[facility] the event this information is protected by the Federal Confidentiality of Alcohol and Drug Abuse Patient Records regulations: The Federal rules restrict any use of the information to criminally investigate or prosecute any alcohol or drug abuse patient.[facility] the event this information is protected by the Federal Confidentiality of Alcohol and Drug Abuse Patient Records regulations: The Federal rules restrict any use of the information to criminally investigate or prosecute any alcohol or drug abuse patient.[facility] the event this information is protected by the Federal Confidentiality of Alcohol and Drug Abuse Patient Records regulations: The Federal rules restrict any use of the information to criminally investigate or prosecute any alcohol or drug abuse patient.[facility] the event this information is protected by the Federal Confidentiality of Alcohol and Drug Abuse Patient Records regulations: The Federal rules restrict any use of the information to criminally investigate or prosecute any alcohol or drug abuse patient.[facility] the event this information is protected by the Federal Confidentiality of Alcohol and Drug Abuse Patient Records regulations: The Federal rules restrict any use of the information to criminally investigate or prosecute any alcohol or drug abuse patient.[facility] the event this information is protected by the Federal Confidentiality of Alcohol and Drug Abuse Patient Records regulations: The Federal rules restrict any use of the information to criminally investigate or prosecute any alcohol or drug abuse patient.[facility] the event this information is protected by the Federal Confidentiality of Alcohol and Drug Abuse Patient Records regulations: The Federal rules restrict any use of the information to criminally investigate or prosecute any alcohol or drug abuse patient.[facility] the event this information is protected by the Federal Confidentiality of Alcohol and Drug Abuse Patient Records regulations: The Federal rules restrict any use of the information to criminally investigate or prosecute any alcohol or drug abuse patient.[facility] Care Teams (unrecognized sec tion and content) 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 Relationship Specialty Start Date End Date Amanda Tabor MD [address] [place], [place] [id number] PCP - General Family Medicine 10/15/24 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 Relationship Specialty Start Date End Date Amanda Tabor MD [address] [place], [place] [id number] PCP - General Family Medicine 10/15/24 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 Relationship 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 Start Date End Date Amanda Tabor MD [address] [place], [place] [id number] PCP - General Family Medicine 10/15/24 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 Relationship Specialty Start Date End Date Amanda Tabor MD [address] [place], [place] [id number] PCP - General Family Medicine 10/15/24 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 Relationship Specialty Start Date End Date Amanda Tabor MD [address] [place], [place] [phone] PCP - General Family Medicine 10/15/24 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 Relationship Specialty Start Date End Date Amanda Tabor MD [address] [place], [place] [id number] PCP - General Family Medicine 10/15/24 Reason for Visit (unrecogniz ed section and content) Reason Comments [facility] Specialty Diagnoses / Procedures Referred By Contac t Referred To Contact Gynecology Diagnoses Screening for cervical cancer Procedures CONSULT TO GYNECOLOGY OFFICE/OUTPATIENT NEW HIGH MDM 60 MINUTES Amanda Tabor MD [address] [place] [address] Phone: tel: fax: Referral ID Status Reason Start Date Expiration Date V isits Requested Visits Authorized [id number] Closed PCP Requested Referral Auto-Generated Referral 10/15/2024 10/15/2025 1 1 Reason Onset Date Comments Refill Request 12/03/2024 Reason Comments Pending Ubrelvy 100MG tablets Reason Comments Pending Ubrelvy Reason Comments Ubrelvy is still under review Reason Comments Approved Ubrelvy Reason Comments Follow Up Clarity is here toda y for 3 month follow-up of chronic conditions. Ladarius Ayala, FREDYNMyrtle 2024 9:00 AM FOR RECORDS PERTAINING TO PATIENTS WHO ARE OR HAVE BEEN ENROLLED IN A CHEMICAL DEPENDENCY/SUBSTANCEABUSE PROGRAM, SOME INFORMATION MAY BE OMITTED. This clinical summary was aggregated from multiple sources. Caution should be exercised in using it in the provision of clinical care. This summary normalizes information from multiple sources, and as a consequence, information in this document may materially change the coding, format and clinical context of patient data. In addition, data may be omitted in some cases. CLINICAL DECISIONS SHOULD BE BASED ON THE PRIMARY CLINICAL RECORDS. [employer] [facility]. provides no warranty or guarantee of the accuracy or completeness of information in this document.
[2025-01-24] MEDS: DiphenhydrAMINE 50 MG/ML Syringe IV (00:21)
[2025-01-24] MEDS: 0.9% Normal Saline (1000mL) 1,000 ML 999 ML IV (00:21)
[2025-01-24] MEDS: Famotidine 200 MG/20 ML MDV 20 MG in 0.9% Normal Saline (Pres. free 8 ML 300 MG IV (00:21)
[2025-01-24] MEDS: MethylPREDNISolone 125 MG/2 ML Vial IV (00:21)
[2025-01-24 00:29] VITALS: BP 153/100; PULSE 92; RESP 15; O2SAT 100
[2025-01-24 00:32] LABS: Absolute Lymphocyte Count 4.89 X10^3/uL (0.83-4.51); Basophil# 0.09 X10^3/uL; Basophil% 0.7 % (0-1); Eosinophil# 0.12 X10^3/uL; Eosinophils% 0.9 % (0-5); Hematocrit 43.1 % (37-47); Hemoglobin 14.1 g/dL (12.0-15.0); Lymphocyte # 4.89 X10^3/ul (0.83-4.51); Mean Corp Hgb Conc 32.7 g/dL (32-36); Mean Corpuscular Hgb 28.3 pg (27.0-32.0); Mean Corpuscular Volume 86.5 fL (81-99); Mean Platelet Vol. 9.9 fl (6.2-12.0); Monocyte# 0.75 X10^3/uL; Monocyte% 5.8 % (0-10); NRBC Flagged by Analyzer 0 % (0-5); Neutrophil % 54.4 % (47-70); Platelet Count 299 K/mm3 (150-450); RBC Distribution Width CV 13.6 % (11.6-14.6); RBC Distribution Width SD 42.5 fl (35.1-43.9); Red Blood Count 4.98 M/mm3 (4.2-5.4); White Blood Count 12.9 K/mm3 (4.4-11.0)
[2025-01-24 00:55] LABS: AST(SGOT) 18 U/L (<=31); Alanine Aminotransfer ALT/SGPT 21 U/L (<=34); Albumin, Serum 4.2 g/dL (3.5-5.0); Alkaline Phosphatase 65 U/L (35-104); Anion Gap 11 (5-15); BUN 10 mg/dL (4-19); BUN/Creat Ratio 17.5 RATIO (10-20); Bilirubin, Direct 0.08 mg/dL (0.00-0.30); CPK Total, Creatine Kinase 56 U/L (24-195); Calcium,Total 9.1 mg/dL (7.6-11.0); Carbon Dioxide 24.2 mmol/L (21.0-32.0); Chloride 107 mmol/L (98-108); Creatinine, Serum 0.57 mg/dL (0.70-1.20); EST Glomerular Filtration Rate 123 (>60); Glucose 133 mg/dL (70-99); Potassium 3.5 mmol/L (3.3-5.1); Protein, Total 7.2 g/dL (5.9-8.4); Sodium Level 142 mmol/L (133-145); Total Bilirubin 0.22 mg/dL (0.00-1.30)
--- NOTE | 2025-01-24 01:12 | EDS_ITS ---
HPI History of Present Illness Chief Complaint: Allergic Reaction Informant: patient and spouse/S.O. Narrative Narrative: Patient is a 34-year-old female who reports a past medical history of insomnia and migraine headache. She states she was recently placed on fenofibrate. She states has been taking it for 1 week. Today shortly after taking it she began to feel hot and flushed and noticed that her cheeks and forehead were slightly red and swollen. She states she contacted an on-call nurse through her insurance and she was advised to go to the ER for evaluation. The patient states that there has been no other new exposures then the new medication. She states that her spouse does not have any of the same symptoms. She states symptoms have been present for roughly 2 hours and she denies any trouble breathing or swallowing. [facility] Medical History (Updated 01/24/25 @ 03:[address] Heath Murphy, ) Insomnia Migraines Allergy/AdvReac Type Severity Reaction Status Date / Time Penicillins Allergy Mild PT UNSURE Verified 01/23/25 21:47 OF REACTION Social History Smoking Status: Never smoker ROS ROS ED Constitutional Constitutional ED: Denies chills or fever(s) Eyes Eyes: Denies blurry vision or change in vision ENT ENT ED: Reports sore throat Cardiovascular Cardiovascular: Denies chest pain Respiratory/Chest Respiratory/Chest: Denies cough or dyspnea Gastrointestinal Gastrointestinal: Denies abdominal pain, diarrhea, nausea or vomiting Genitourinary Genitourinary ED: Denies dysuria Musculoskeletal Musculoskeletal: Denies myalgias Integumentary Reports rash Neurologic Neurologic: Denies headache(s) Hematologic/Lymphatic Hematologic/Lymphatic: Denies easy bleeding or easy bruising Allergic/Immunologic Allergic/Immunologic ED: Denies mouth swelling or tongue swelling EXAM Physical Exam Const Vital Signs: 01/23/25 21:47 01/24/25 00:29 01/24/25 01:22 Temperature 97.6 F L 98.4 F Temperature Source Temporal Pulse Rate 103 H 92 85 Respiratory Rate 18 15 19 H Blood Pressure 148/104 H 153/100 H 148/71 H Blood Pressure Mean 118 117 96 Pulse Ox 100 100 100 Oxygen Delivery Method Room Air Room Air Positive well nourished and well developed General Appearance ED: well developed HEENT Reports moist mucous membranes HEENT Narrative: No tongue or lip swelling no oral lesions no airway edema or compromise No physical exam findings of anaphylaxis or angioedema Eyes PERRL and EOMs intact bilaterally General Eye ED: Negative for scleral icterus Neck supple Neck Narrative: No nuchal rigidity or meningeal signs Resp normal respiratory effort and clear to auscultation bilaterally Cardio regular rate and regular rhythm Extremity normal to inspection Neuro oriented x3, CN's II-XII intact bilaterally and no sensory deficits noted Sensorium / Orientation: alert Motor Exam: strength 5/5 throughout Psych mental status grossly normal Skin Skin Narrative: Patient has mild soft tissue swelling to her cheeks and forehead with facial flushing/erythema at these sites. Otherwise there is no rash noted across the chest abdomen back or extremities and no involvement of the palms or soles No desquamation noted No vesicular changes MDM MDM MDM Narrative Medical decision making narrative: Patient arrived to the ER mildly hypertensive otherwise with stable vitals and i n no acute respiratory distress. With new medication on board and facial flushing and redness there is concern for adverse drug reaction/allergic reaction versus angioedema or anaphylaxis. As the patient does not have airway compromise and physical exam does not suggest any type of angioedema I do not feel the need for intubation or airway stabilization. Fenofibrate can lead to anemia or liver enzyme derangement or rhabdomyolysis and therefore to check for these potential side effects basic blood work was obtained. Labs revealed no clinically significant finding. After receiving IV fluids Benadryl Pepcid and Solu-Medrol the patient improvement of her facial flushing and swelling. She remained in no acute respiratory distress. Therefore this time with improvement of symptoms and no signs of anaphylaxis or angioedema or respiratory distress there is no need for further workup and she is otherwise safe for discharge History & Record Review Discussion w/independent historian: Patient and Significant other Lab Data Attestation: I reviewed the patient's lab results. Labs: Laboratory Results - last 24 hr 01/24/25 00:16 WBC 12.9 H RBC 4.98 Hgb 14.1 Hct 43.1 MCV 86.5 MCH 28.3 MCHC 32.7 RDW Std Deviation 42.5 RDW Coeff of Diallo 13.6 Plt Count 299 MPV 9.9 Immature Gran % (Auto) 0.200 Neut % (Auto) 54.4 Lymph % (Auto) 38.0 [place] % (Auto) 5.8 Eos % (Auto) 0.9 Baso % (Auto) 0.7 Absolute Neuts (auto) 7.0 Absolute Lymphs (auto) 4.89 H Nucleated RBC % 0 Sodium 142 Potassium 3.5 Chloride 107 Carbon Dioxide 24.2 Anion Gap 11 BUN 10 Creatinine 0.57 L Estim Creat Clear Calc 152.20 Est GFR (MDRD) Non-Af 123 BUN/Creatinine Ratio 17.5 Glucose 133 H Calcium 9.1 Total Bilirubin 0.22 Direct Bilirubin 0.08 AST 18 ALT 21 Alkaline Phosphatase 65 Total Creatine Kinase 56 Total Protein 7.2 Albumin 4.2 Globulin 3.0 Discharge Plan Triage Chief Complaint: Allergic Reaction ED Provider: Heath Murphy Dx/Rx/DC Orders Clinical Impression: Allergic reaction, Insomnia, History of migraine headaches Instructions: ED ADVERSE DRUG REACTION Allergic Primary Care Provider: Héctor Morales,Out of Referrals: Héctor Morales,Out of [Primary Care Provider] - Activity Restrictions/Additional Instructions: Please stop the fenofibrate as this is your only new exposure and most likely the cause of your flushing and redness. Laboratory studies show no signs that it is caused muscle breakdown/rhabdomyolysis or liver damage which are the 2 most common side effect. Please follow-up with your family doctor to discuss medication changes and return to the ER should you have any further concerns Print Language: Portuguese Disposition Disposition: Home, Self Care Discharge Date/Time: 01/24/25 01:27
[2025-01-24 01:22] VITALS: BP 148/71; PULSE 85; RESP 19; TEMP 36.9; O2SAT 100
== END 2025-01-24 01:27 | disposition home or self-care (01) ==
PROVIDERS: Emergency Provider Emergency Medicine; Visit Provider Emergency Medicine
DX: R23.2 Flushing (principal); T46.6X5A Adverse effect of antihyperlipidemic and antiarteriosclerotic drugs, initial encounter; G47.00 Insomnia, unspecified; Z87.898 Personal history of other specified conditions
CPT/HCPCS: 80048; 80076; 82550; 85025; 96365; 96375; 99283; A4216